=== PATIENT | male | born 1975 | race Caucasian/White ===

== ENCOUNTER 2017-04-20 12:09 | Emergency (ER) | payer OTHER ==
[2017-04-20] MEDS ORDERED: Ondansetron 4 MG/2 ML SDV IVPUSH ONE (12:13)
[2017-04-20] MEDS ORDERED: Sodium Chloride 0.9% 1,000 ML IV SCH (12:15)
--- NOTE | 2017-04-20 12:56 | EDM.PDOC ---
ED HPI GENERAL MEDICAL PROBLEM - General Chief Complaint: Chest Pain Stated Complaint: CHEST PAIN Time Seen by Provider: 04/20/17 12:12 Source of Information: Reports: Patient History Limitations: Reports: No Limitations - History of Present Illness INITIAL COMMENTS - FREE TEXT/NARRATIVE: HISTORY AND PHYSICAL: Chest Pain History of present illness: Patient is a 41-year-old male who presents to the emergency room today with complaints of midsternal chest pain that has been on and off for the past hour. States he was at work, sitting at his desk when the pain started. Describes the pain as a dull, aching pressure which intermittently goes down his right arm into his fifth finger. States the pain is a 1 out of 10 with rest and increases to a 7 out of 10 with exertion and is accompanied with nausea. Denies any shortness of breath, diaphoresis, headache, abdominal pain, vomiting or diarrhea. Denies any previous health problems and takes just multivitamins daily. Does not have any significant family history of health problems. No history of smoking. Reports his Review of systems: As per history of present illness and below otherwise all systems reviewed and negative. Past medical history: As per history of present illness and as reviewed below otherwise noncontributory. Surgical history: As per history of present illness and as reviewed below otherwise noncontributory. Social history: No reported history of drug or alcohol abuse. Family history: As per history of present illness and as reviewed below otherwise noncontributory. Physical exam: Gen.: Well-developed and well-nourished 41-year-old male. Nontoxic appearing. Able to speak in full sentences without shortness of breath. Alert and oriented. HEENT: Atraumatic, normocephalic, pupils reactive, negative for conjunctival pallor or scleral icterus, mucous membranes moist, throat clear, neck supple, nontender, trachea midline. Lungs: Clear to auscultation, breath sounds equal bilaterally, chest nontender. Heart: S1S2, regular rate and rhythm Abdomen: Soft, nondistended, nontender. Negative for masses or hepatosplenomegaly. Negative for costovertebral tenderness. Pelvis: Stable nontender. Genitourinary: Deferred. Rectal: Deferred. Extremities: Atraumatic, negative for cords or calf pain. Neurovascular unremarkable. Neuro: Awake, alert, oriented. Cranial nerves II through XII unremarkable. Cerebellum unremarkable. Motor and sensory unremarkable throughout. Exam nonfocal. Patient had 324 mg of aspirin prior to arrival and 1 nitroglycerin per EMS. Vital signs and EKG were reviewed by me and Dr. Orr. He shouldnt is currently chest pain-free and only complaint is the nausea. Patient is pain-free. Vital signs were reviewed by me. All lab and imaging results with the patient. I did offer him admission at this time. He did take 5- 10 minutes to discuss this with his family members and decided to decline admission. Risks versus benefits were reviewed, patient voices understanding. Patient states he will follow up with his primary care provider in the next 1-2 days and receive further with workup if indicated. Agreeable to plan of care and denies any further questions at this time. Diagnostics: CBC, CMP, troponin, EKG, chest x-ray, child monitor Therapeutics: IV fluid and Zofran Impression: Chest pain, nonspecific Plan: 1. Please take a baby aspirin, 81 mg once daily. 2. Follow-up with your primary care provider in the next 1-2 days. Return to the ED as needed and as discussed. Definitive disposition and diagnosis as appropriate pending reevaluation and review of above. Onset: Today Anterior Chest Pain Score (Numeric/FACES): 3 - Related Data Allergies Allergy/AdvReac Type Severity Reaction Status Date / Time bismuth subsalicylate Allergy Hives Verified 04/20/17 12:11 [From Pepto-Bismol] deet Allergy Dizziness Uncoded 04/20/17 12:11 Home Meds: Home Meds . [No Known Home Meds] 04/20/17 [History] Past Medical History - Past Health History Medical/Surgical History: Denies Medical/Surgical History Cardiovascular History: Reports: None Respiratory History: Reports: None Gastrointestinal History: Reports: None Genitourinary History: Reports: None Musculoskeletal History: Reports: None Neurological History: Reports: None Psychiatric History: Reports: None Endocrine/Metabolic History: Reports: None - Past Surgical History HEENT Surgical History: Reports: None Respiratory Surgical History: Reports: None GI Surgical History: Reports: None Musculoskeletal Surgical History: Reports: None Social & Family History - Family History Cardiac: Reports: CAD - Tobacco Use Smoking Status *Q: Never Smoker Second Hand Smoke Exposure: No - Alcohol Use Days Per Week of Alcohol Use: 0 - Recreational Drug Use Recreational Drug Use: No ED ROS GENERAL - Review of Systems Review Of Systems: ROS reveals no pertinent complaints other than HPI. ED EXAM, GENERAL - Physical Exam Exam: See Below (See dictation) Course - Vital Signs Last Recorded V/S: Last Vital Signs Temp 36.6 C 04/20/17 12:12 Pulse 69 04/20/17 12:12 Resp 15 04/20/17 12:12 BP 130/84 04/20/17 12:12 Pulse Ox 98 04/20/17 12:12 - Orders/Labs/Meds Orders: Active Orders 24 hr Category Date Time Status Cardiac Monitoring [RC] . DIRECTED Care 04/20/17 12:13 Active EKG Documentation Completion [RC] STAT Care 04/20/17 12:13 Active Sodium Chloride 0.9% [Normal Saline] 1,000 ml Med 04/20/17 12:15 Active IV ASDIRECTED Medication Orders Sodium Chloride (Normal Saline) 1,000 mls @ 999 mls/hr IV ASDIRECTED YOANDY Last Admin: 04/20/17 12:38 Dose: 999 mls/hr Labs: Laboratory Tests 04/20/17 04/20/17 Range/Units 12:37 12:37 WBC 7.27 (4.0-11.0) K/uL RBC 4.49 L (4.50-5.90) M/uL Hgb 13.7 (13.0-17.0) g/dL Hct 39.9 (38.0-50.0) % MCV 88.9 (80.0-98.0) fL MCH 30.5 (27.0-32.0) pg MCHC 34.3 (31.0-37.0) g/dL RDW Std Deviation 43.7 (28.0-62.0) fl RDW Coeff of [place] 13 (11.0-15.0) % Plt Count 251 (150-400) K/uL MPV 8.90 (7.40-12.00) fL Neut % (Auto) 61.2 (48.0-80.0) % Lymph % (Auto) 27.1 (16.0-40.0) % [place] % (Auto) 8.1 (0.0-15.0) % Eos % (Auto) 3.0 (0.0-7.0) % Baso % (Auto) 0.6 (0.0-1.5) % Neut # (Auto) 4.5 (1.4-5.7) K/uL Lymph # (Auto) 2.0 (0.6-2.4) K/uL [place] # (Auto) 0.6 (0.0-0.8) K/uL Eos # (Auto) 0.2 (0.0-0.7) K/uL Baso # (Auto) 0.0 (0.0-0.1) K/uL Nucleated RBC % 0.0 /100WBC Nucleated RBCs # 0 K/uL Sodium 140 (136-146) mmol/L Potassium 3.8 (3.5-5.1) mmol/L Chloride 107 (98-110) mmol/L Carbon Dioxide 26 (21-31) mmol/L BUN 10 (6.0-23.0) mg/dL Creatinine 1.0 (0.6-1.5) mg/dL Est Cr Clr Drug Dosing 101.39 mL/min Estimated GFR (MDRD) > 60.0 ml/min Glucose 76 (60-110) mg/dL Calcium 9.1 (8.8-10.8) mg/dL Total Bilirubin 0.3 (0.1-1.5) mg/dL AST 19 (5-40) IU/L ALT 22 (8-54) IU/L Alkaline Phosphatase 24 L (40-150) Troponin I < 0.10 (0.0-0.29) NG/ML Total Protein 7.1 (6.0-8.0) g/dL Albumin 3.9 (3.5-5.0) g/dL Globulin 3.2 (2.0-3.5) g/dL Albumin/Globulin Ratio 1.2 L (1.3-2.8) Meds: Medications Generic Name Dose Route Start Last Admin Trade Name Freq PRN Reason Stop Dose Admin Sodium Chloride 1,000 mls @ 999 mls/hr 04/20/17 12:15 04/20/17 12:38 Normal Saline IV 999 mls/hr ASDIRECTED YOANDY Administration Discontinued Medications Generic Name Dose Route Start Last Admin Trade Name Freq PRN Reason Stop Dose Admin Ondansetron HCl 4 mg 04/20/17 12:13 04/20/17 12:36 Zofran IVPUSH 10/25/17 12:14 4 mg ONETIME ONE Administration Departure - Departure Time of Disposition: 14:12 Disposition: Home, Self-Care 01 Clinical Impression: Nonspecific chest pain Referrals: PCP,Unknown [Primary Care Provider] - Forms: ED Department Discharge Additional Instructions: My general discharge The following information is given to patients seen in the emergency department who are being discharged to home. This information is to outline your options for follow-up care. We provide all patients seen in our emergency department with a follow-up referral. The need for follow-up, as well as the timing and circumstances, are variable depending upon the specifics of your emergency department visit. If you don't have a primary care physician on staff, we will provide you with a referral. We always advise you to contact your personal physician following an emergency department visit to inform them of the circumstance of the visit and for follow-up with them and/or the need for any referrals to a consulting specialist. The emergency department will also refer you to a specialist when appropriate. This referral assures that you have the opportunity for follow-up care with a specialist. All of these measure are taken in an effort to provide you with optimal care, which includes your follow-up. Under all circumstances we always encourage you to contact your private physician who remains a resource for coordinating your care. When calling for follow-up care, please make the office aware that this follow-up is from your recent emergency room visit. If for any reason you are refused follow-up, please contact the [facility] at and asked to speak to the emergency department charge nurse. [facility] [address] [place] [id number] 1. Please take a baby aspirin, 81 mg once daily. 2. Follow-up with your primary care provider in the next 1-2 days. Return to the ED as needed and as discussed. - My Orders Last 24 Hours: My Active Orders 04/20/17 12:13 Cardiac Monitoring [RC] . DIRECTED EKG Documentation Completion [RC] STAT 04/20/17 12:15 Sodium Chloride 0.9% [Normal Saline] 1,000 ml IV ASDIRECTED - Assessment/Plan Last 24 Hours: My Active Orders 04/20/17 12:13 Cardiac Monitoring [RC] . DIRECTED EKG Documentation Completion [RC] STAT 04/20/17 12:15 Sodium Chloride 0.9% [Normal Saline] 1,000 ml IV ASDIRECTED
[2017-04-20 13:24] LABS: CHLORIDE,CL 107 mmol/L (98-110); SODIUM,NA 140 mmol/L (136-146)
--- NOTE | 2017-04-20 13:25 | CR ---
EXAMINATION: Portable chest radiograph. HISTORY: Chest pain. FINDINGS: The trachea is midline. The cardiomediastinal silhouette is within normal limits. No pulmonary infilt rates, effusions or pneumothorax. Osseous structures appear unremarkable. IMPRESSION: No acute cardiopulmonary process.
[2017-04-20 14:27] VITALS: BP 131/77
== END 2017-04-20 14:21 | disposition home or self-care (01) ==
LOC: MW.ED 12:09
DX: R07.9 Chest pain, unspecified (principal)
CPT/HCPCS: 36415; 71010; 80053; 84484; 85025; 93005; 96361; 96374; 99284; J2405; J7040; 99283

== ENCOUNTER 2020-07-17 07:39 | Inpatient (IN) | payer OTHER ==
[2020-07-17] MEDS ORDERED: Dextrose 5%-0.9% NaCl 1,000 ML IV SCH (08:15)
--- NOTE | 2020-07-17 08:50 | CR ---
INDICATION: Hypoxia TECHNIQUE: Chest 1 views COMPARISON: 04/20/2017 FINDINGS: Cardiovascular and mediastinum: Heart size and vasculature are normal in caliber and appearance. Lungs and pleural spaces: Ill-defined opacities are present in the lower lungs bilaterally. No effusions and no pneumothorax. Bones and soft tissues: No significant findings. IMPRESSION: Ill-defined pneumonia, pulmonary edema, and/or atelectasis suspected in the lower lobes. COVID pneumonitis is not definite but possible. Dictated by Cesar Melchor MD @ Jul 17 2020 8:46AM Signed by Dr. Cesar Melchor @ Jul 17 2020 8:48AM
[2020-07-17 08:53] LABS: BLOOD UREA NITROGEN,BUN 21 mg/dL (7.0-18.0); CHLORIDE,CL 99 mmol/L (98-107); GLUCOSE RANDOM 93 mg/dL (74-106); SODIUM,NA 136 mmol/L (136-148)
[2020-07-17 09:19] LABS: CORONAVIRUS COVID-19 NAA POSITIVE (NEGATIVE); INFLUENZA A NAA NEGATIVE (NEGATIVE); INFLUENZA B NAA NEGATIVE (NEGATIVE)
[2020-07-17] MEDS ORDERED: Albuterol/Ipratropium 4 GM Inhalation Spray INH PRN (11:56)
[2020-07-17] MEDS ORDERED: Ondansetron 4 MG/2 ML SDV IVPUSH PRN (11:56)
[2020-07-17] MEDS ORDERED: Lactated Ringers 1,000 ML IV ONE (11:56)
[2020-07-17] MEDS ORDERED: Sodium Chloride 0.9% 2.5 ML Syringe FLUSH PRN (11:56)
[2020-07-17] MEDS ORDERED: Docusate Sodium 100 MG Cap PO PRN (11:56)
--- NOTE | 2020-07-17 12:06 | PCM.HP.2 ---
H&P History of Present Illness - General Date of Service: 07/17/20 Admit Problem/Dx: Admission Diagnosis/Problem Admission Diagnosis/Problem Hypoxia Source of Information: Patient History Limitations: Reports: No Limitations - History of Present Illness Initial Comments - Free Text/Narative: This 44-year-old male with past medical history of obesity, CHANTE, fungal lung infection, and Covid presented to the ER today with concerns of worsening shortness of breath and generalized fatigue and malaise. He reports that his generalized malaise and fatigue has worsened over the last couple weeks along with his breathing. He reports that he started noticing worsening shortness of breath a couple weeks ago and this has progressively worsened to the point today that he is unable to do many activities without severe fatigue and shortness of breath. He reports he has had fevers and chills at home along with productive cough and pleuritic chest pain. He denies any chest pain with exertion. No dizziness. He does report headache sinus congestion sore throat as well. He d enies any neck pain or nuchal rigidity. He denies any abdominal pain. He does report mild nausea and poor appetite. He denies any diarrhea or black or bloody bowel movements and no constipation. No trouble voiding. He reports that his was recently diagnosed with Covid and is into her quarantine on Tuesday. He reports that he was diagnosed with Covid in April but did not require hosp italization or an ER visit and was not treated with any medications at that time. He did see his PCP the end of May and was started on dexamethasone 6 mg twice daily for residual shortness of breath and fatigue from prior diagnosis of Covid. He also had been taking Diflucan 200 mg daily for fungal infection that was diagnosed in February in [facility]. He reports approximately 4 days ago he ran out of his Diflucan and finished taking the dexamethasone. He denies ever having any type of bronchoscopy or biopsy to diagnose this fungal infection. He reports they found groundglass opacities on his x-ray. He reports he saw a invoicing specialist, Dr. Salgado, in [place] we will attempt to get records. He reports he has not tried to take any medications to improve symptoms including Tylenol or Motrin. He is a former smoker quit tobacco in early along with alcohol use. He also denies any recreational drug use. He has no history of hypertension or diabetes and no CAD. Upon chart review, it appears he was previously had a stress test due to left-sided chest pain. Stress test revealed possible decreased uptake along the inferior wall but upon further evaluation cardiology felt this is likely not ischemia. EF 65% in 2018. In the ER leukocytosis noted at 12,000 neutrophil count slightly elevated showing a left shift. Electrolytes within normal limits BUN 21 creatinine 1.3. Troponin negative. Chest x-ray reveals ill-defined pneumonia and pulmonary edema and or atelectasis suspected in the lower lobes Covid pneumonitis is not definite but possible. Upon arrival to the ER he was noted to be hypoxic mid 80s on room air he was placed on 6 L of oxygen and slowly weaned down to 3 L nasal cannula. He has maintained sats 95% on 3 L well. Patient will be admitted inpatient due to acute hypoxic respiratory failure, Covid and possible community acquired pneumonia. PCP Dr. Cui outside chart review: Received chart from Dr. Salgado, pulmonology in [facility]. Upon review it appears patient was seen at an outside clinic and sent for consultation with pulmonology due to a lung nodule. He had a CT on February 19, 2020 that showed multiple pulmonary nodules most severe 6.7 mm solid pulmonary nodule within the upper lobe on the right the exam is negative for pulmonary embolus and there was nonspecific bilateral ground glass infiltrates noted he also had noted cough with some atypical chest pain weight loss and obstructive sleep apnea. Significant amount of tests were run including ESR CRP fungal antibodies Covid swabbing Coccidioides and quantiferon. She did recommend a PET scan but due to no insurance he did not want to perform this but all the lab studies were performed. He was started on Diflucan 200 mg twice daily empirically with high suspicion of coccidioidomycosis. He reports he continued this Diflucan twice daily but now has been taking it once a day per Dr. Salgado's recommendations. All testing revealed negative quantiferon plus was negative ESR and CRP were not significantly elevated fungal antibodies were completed which all appeared negative these included Aspergillus fumigatus flavus and [place] which were all negative Blastomyces and histoplasma were also negative Coccidioides IgE and IgM were both negative. Covid swab was also negative at this time. generalized Pain Score (Numeric/FACES): 6 - Related Data Allergies/Adverse Reactions: Allergies Allergy/AdvReac Type Severity Reaction Status Date / Time bismuth subsalicylate Allergy Hives Verified 07/17/20 07:46 [From Pepto-Bismol] deet Allergy Dizziness Uncoded 07/17/20 07:46 Home Medications: Home Meds Albuterol Sulfate [Proventil Hfa] 2 puff INH DAILY 07/17/20 [History] Budesonide/Formoterol Fumarate [Symbicort 160-4.5 Mcg Inhaler] 2 puff INH DAILY 07/17/20 [History] Fluconazole [Diflucan] 200 mg PO DAILY 07/17/20 [History] PARoxetine [Paxil] 10 mg PO DAILY 07/17/20 [History] dexAMETHasone [Dexamethasone] 6 mg PO BID 07/17/20 [History] Past Medical History - Past Health History Medical/Surgical History: Denies Medical/Surgical History Cardiovascular History: Reports: None. Denies: Afib, Blood Clots/VTE/DVT, CAD, High Cholesterol, ND Respiratory History: Reports: Sleep Apnea (Previously on CPAP was retested and needs BiPAP but awaiting insurance approval for machine.) Gastrointestinal History: Reports: None. Denies: Gastritis, GERD Genitourinary History: Reports: None. Denies: Acute Renal Failure Musculoskeletal History: Reports: None Neurological History: Reports: None. Denies: CVA, TIA Psychiatric History: Reports: None Endocrine/Metabolic History: Reports: Obesity/BMI 30+. Denies: Diabetes, Type II - Infectious Disease History Infectious Disease History: Reports: Chicken Pox - Past Surgical History HEENT Surgical History: Reports: None Respiratory Surgical History: Reports: None Other Respiratory Surgeries/Procedures: Fungal infection in lungs that is regional is [facility]. Patient states he got that in February 2020 GI Surgical History: Reports: None Musculoskeletal Surgical History: Reports: None Social & Family History - Family History Cardiac: Reports: CAD - Tobacco Use Tobacco Use Status *Q: Former Tobacco User Used Tobacco, but Quit: Yes Month/Year Tobacco Last Used: 2004 - Caffeine Use Caffeine Use: Reports: None - Alcohol Use Alcohol Use History: No - Recreational Drug Use Recreational Drug Use: No - Living Situation & Occupation Living situation: Reports: Occupation: Employed H&P Review of Systems - Review of Systems: Review Of Systems: See Below General: Reports: Fever, Chills, Malaise, Weakness, Fatigue, Decreased Appetite, Weight Loss HEENT: Reports: Headaches, Sinus Congestion, Sore Throat Pulmonary: Reports: Shortness of Breath, Pleuritic Chest Pain, Cough, Sputum (Yellow/green). Denies: Hemoptysis Cardiovascular: Reports: Dyspnea on Exertion. Denies: Chest Pain, Palpitations, Edema, Lightheadedness Gastrointestinal: Reports: Decreased Appetite, Nausea. Denies: Abdominal Pain, Black Stool, Bloody Stool, Diarrhea Genitourinary: Reports: No Symptoms. Denies: Dysuria, Frequency, Burning Musculoskeletal: Reports: No Symptoms Skin: Reports: No Symptoms Psychiatric: Reports: No Symptoms Neurological: Reports: No Symptoms Hematologic/Lymphatic: Reports: No Symptoms Immunologic: Reports: No Symptoms Exam - Exam Exam: See Below - Vital Signs Vital Signs: Last Vital Signs Temp 98.7 F 07/17/20 07:51 Pulse 87 07/17/20 07:51 Resp 16 07/17/20 07:51 BP 140/69 07/17/20 07:51 Pulse Ox 95 07/17/20 09:07 Weight: 106.594 kg - Exam Quality Assessment: Supplemental Oxygen (3 L) General: Alert, Oriented, Cooperative HEENT: Conjunctiva Clear, Pupils Equal. No: Mucosa Moist & [place] (Try) Neck: Lymphadenopathy Lungs: No: Normal Respiratory Effort (Dyspnea with speech) Cardiovascular: Regular Rate, Regular Rhythm GI/Abdominal Exam: Normal Bowel Sounds, Soft, Non-Tender Back Exam: Normal Inspection, Full Range of Motion Extremities: Normal Inspection, Normal Range of Motion, Non-Tender, No Pedal Edema Skin: Warm, Dry, Intact Neuro Extensive - Mental Status: Alert, Oriented x3, Normal Mood/Affect Neuro Extensive - Motor, Sensory, Reflexes: CN II-XII Intact Psychiatric: Alert, Normal Affect, Normal Mood - Patient Data Lab Results Last 24 hrs: Laboratory Results - last 24 hr 07/17/20 07/17/20 07/17/20 Range/Units 08:15 08:15 08:15 WBC 12.44 H (4.0-11.0) K/uL RBC 4.59 (4.50-5.90) M/uL Hgb 13.9 (13.0-17.0) g/dL Hct 42.6 (38.0-50.0) % MCV 92.8 (80.0-98.0) fL MCH 30.3 (27.0-32.0) pg MCHC 32.6 (31.0-37.0) g/dL RDW Std Deviation 48.4 (28.0-62.0) fl RDW Coeff of [place] 14 (11.0-15.0) % Plt Count 163 (150-400) K/uL MPV 8.70 (7.40-12.00) fL Neut % (Auto) 91.5 H (48.0-80.0) % Lymph % (Auto) 4.7 L (16.0-40.0) % [place] % (Auto) 3.6 (0.0-15.0) % Eos % (Auto) 0.2 (0.0-7.0) % Baso % (Auto) 0.0 (0.0-1.5) % Neut # (Auto) 11.4 H (1.4-5.7) K/uL Lymph # (Auto) 0.6 (0.6-2.4) K/uL [place] # (Auto) 0.5 (0.0-0.8) K/uL Eos # (Auto) 0.0 (0.0-0.7) K/uL Baso # (Auto) 0.0 (0.0-0.1) K/uL Nucleated RBC % 0.0 /100WBC Nucleated RBCs # 0 K/uL INR 0.99 D-Dimer, Quantitative 0.23 (0.0-0.50) mg/L FEU Sodium 136 (136-148) mmol/L Potassium 4.0 (3.5-5.1) mmol/L Chloride 99 (98-107) mmol/L Carbon Dioxide 29.0 (21.0-32.0) mmol/L BUN 21 H (7.0-18.0) mg/dL Creatinine 1.3 (0.8-1.3) mg/dL Est Cr Clr Drug Dosing 75.65 mL/min Estimated GFR (MDRD) > 60.0 ml/min Glucose 93 (74-106) mg/dL Calcium 8.9 (8.5-10.1) mg/dL Magnesium 2.3 (1.8-2.4) mg/dL Total Bilirubin 0.5 (0.2-1.0) mg/dL AST 18 (15-37) IU/L ALT 39 (14-63) IU/L Alkaline Phosphatase 17 L (46-116) U/L Creatine Kinase 29 (26-308) U/L Troponin I (0.000-0.056) ng/mL Total Protein 6.2 L (6.4-8.2) g/dL Albumin 2.6 L (3.4-5.0) g/dL Globulin 3.6 (2.6-4.0) g/dL Albumin/Globulin Ratio 0.7 L (0.9-1.6) TSH 3rd Generation 0.81 (0.36-3.74) uIU/mL Influenza Type A RNA (NEGATIVE) Influenza Type B RNA (NEGATIVE) SARS-CoV-2 RNA (MAUREEN) (NEGATIVE) 07/17/20 07/17/20 Range/Units 08:15 08:30 WBC (4.0-11.0) K/uL RBC (4.50-5.90) M/uL Hgb (13.0-17.0) g/dL Hct (38.0-50.0) % MCV (80.0-98.0) fL MCH (27.0-32.0) pg MCHC (31.0-37.0) g/dL RDW Std Deviation (28.0-62.0) fl RDW Coeff of [place] (11.0-15.0) % Plt Count (150-400) K/uL MPV (7.40-12.00) fL Neut % (Auto) (48.0-80.0) % Lymph % (Auto) (16.0-40.0) % [place] % (Auto) (0.0-15.0) % Eos % (Auto) (0.0-7.0) % Baso % (Auto) (0.0-1.5) % Neut # (Auto) (1.4-5.7) K/uL Lymph # (Auto) (0.6-2.4) K/uL [place] # (Auto) (0.0-0.8) K/uL Eos # (Auto) (0.0-0.7) K/uL Baso # (Auto) (0.0-0.1) K/uL Nucleated RBC % /100WBC Nucleated RBCs # K/uL INR D-Dimer, Quantitative (0.0-0.50) mg/L FEU Sodium (136-148) mmol/L Potassium (3.5-5.1) mmol/L Chloride (98-107) mmol/L Carbon Dioxide (21.0-32.0) mmol/L BUN (7.0-18.0) mg/dL Creatinine (0.8-1.3) mg/dL Est Cr Clr Drug Dosing mL/min Estimated GFR (MDRD) ml/min Glucose (74-106) mg/dL Calcium (8.5-10.1) mg/dL Magnesium (1.8-2.4) mg/dL Total Bilirubin (0.2-1.0) mg/dL AST (15-37) IU/L ALT (14-63) IU/L Alkaline Phosphatase (46-116) U/L Creatine Kinase (26-308) U/L Troponin I < 0.050 (0.000-0.056) ng/mL Total Protein (6.4-8.2) g/dL Albumin (3.4-5.0) g/dL Globulin (2.6-4.0) g/dL Albumin/Globulin Ratio (0.9-1.6) TSH 3rd Generation (0.36-3.74) uIU/mL Influenza Type A RNA NEGATIVE (NEGATIVE) Influenza Type B RNA NEGATIVE (NEGATIVE) SARS-CoV-2 RNA (MAUREEN) POSITIVE H (NEGATIVE) Result Diagrams: 07/17/20 08:15 07/17/20 08:15 Sepsis Event Note - Evaluation Sepsis Screening Result: No Definite Risk - Focused Exam Vital Signs: Vital Signs Temp Pulse Resp BP Pulse Ox 07/17/20 09:07 95 07/17/20 08:30 95 07/17/20 07:51 98.7 F 87 16 140/69 95 - Problem List (1) Acute respiratory failure with hypoxia SNOMED Code(s): 31046466, 344197783 ICD Code: J96.01 - ACUTE RESPIRATORY FAILURE WITH HYPOXIA Status: Acute Current Visit: Yes (2) COVID-19 SNOMED Code(s): 215263466 ICD Code: U07.1 - COVID-19 Status: Acute Current Visit: Yes (3) CAP (community acquired pneumonia) SNOMED Code(s): 097381425 ICD Code: J18.9 - PNEUMONIA, UNSPECIFIED ORGANISM Status: Acute Current Visit: Yes (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 - COCCIDIOIDOMYCOSIS, UNSPECIFIED Status: Chronic Current Visit: Yes (5) Obesity SNOMED Code(s): 107899890, 320848575 ICD Code: E66.9 - OBESITY, UNSPECIFIED Status: Chronic Current Visit: Yes (6) CHANTE on CPAP SNOMED Code(s): 72980834 ICD Code: G47.33 - OBSTRUCTIVE SLEEP APNEA (ADULT) (PEDIATRIC); Z99.89 - DEPENDENCE ON OTHER ENABLING MACHINES AND DEVICES Status: Chronic Current Visit: Yes (7) Former smoker SNOMED Code(s): 6028740 ICD Code: Z87.891 - PERSONAL HISTORY OF NICOTINE DEPENDENCE Status: Chronic Current Visit: Yes Problem List Initiated/Reviewed/Updated: No Orders Last 24hrs: Active Orders 24 hr Category Date Time Status Admission Status [Patient Status] [ADT] Stat ADT 07/17/20 11:00 Active Intake and Output [RC] QSHIFT Care 07/17/20 11:56 Ordered Oxygen Therapy [RC] PRN Care 07/17/20 11:56 Ordered Pulse Oximetry [RC] ASDIRECTED Care 07/17/20 07:59 Active RT Incentive Spirometry [RC] Q1HWA Care 07/17/20 11:56 Ordered RT Post Treatment Assessment [RC] Click to Edit Care 07/17/20 11:58 Ordered RT Pre-Treatment Assessment [RC] Click to Edit Care 07/17/20 11:58 Ordered Telemetry Monitoring [Cardiac Monitoring] [RC] . Care 07/17/20 11:59 Ordered DIRECTED Up With Assistance [RC] ASDIRECTED Care 07/17/20 11:56 Ordered VTE/DVT Education [RC] PER UNIT ROUTINE Care 07/17/20 11:56 Ordered Vital Signs [RC] Q4H Care 07/17/20 11:56 Ordered Regular Diet [DIET] Diet 07/17/20 Lunch Ordered Ang Chest [CT] Urgent Exams 07/17/20 11:18 Ordered CBC WITH AUTO DIFF [HEME] AM Lab 07/18/20 05:11 Ordered CBC WITH AUTO DIFF [HEME] AM Lab 07/19/20 05:11 Ordered CBC WITH AUTO DIFF [HEME] AM Lab 07/20/20 05:11 Ordered CBC WITH AUTO DIFF [HEME] AM Lab 07/21/20 05:11 Ordered CBC WITH AUTO DIFF [HEME] AM Lab 07/22/20 05:11 Ordered COMPREHENSIVE METABOLIC PN,CMP [CHEM] AM Lab 07/18/20 05:11 Ordered COMPREHENSIVE METABOLIC PN,CMP [CHEM] AM Lab 07/19/20 05:11 Ordered COMPREHENSIVE METABOLIC PN,CMP [CHEM] AM Lab 07/20/20 05:11 Ordered COMPREHENSIVE METABOLIC PN,CMP [CHEM] AM Lab 07/21/20 05:11 Ordered COMPREHENSIVE METABOLIC PN,CMP [CHEM] AM Lab 07/22/20 05:11 Ordered CULTURE BLOOD [BC] Stat Lab 07/17/20 11:48 Ordered CULTURE BLOOD [BC] Stat Lab 07/17/20 11:48 Ordered CULTURE SPUTUM + SMEAR [RM] Stat Lab 07/17/20 11:56 Ordered LACTATE WITH REFLEX [BG] Stat Lab 07/17/20 11:48 Ordered MAGNESIUM [CHEM] AM Lab 07/18/20 05:11 Ordered MAGNESIUM [CHEM] AM Lab 07/19/20 05:11 Ordered MAGNESIUM [CHEM] AM Lab 07/20/20 05:11 Ordered MAGNESIUM [CHEM] AM Lab 07/21/20 05:11 Ordered MAGNESIUM [CHEM] AM Lab 07/22/20 05:11 Ordered Acetaminophen [TylenoL] Med 07/17/20 11:56 Ordered 650 mg PO Q4H PRN Albuterol/Ipratropium [Combivent Respimat] Med 07/17/20 11:56 Ordered See Dose Instructions INH Q4H PRN Docusate Sodium [Colace] Med 07/17/20 11:56 Ordered 100 mg PO BID PRN Enoxaparin [Lovenox] Med 07/17/20 12:00 Ordered 40 mg SUBCUT Q24H Lactated Ringers [Ringers, Lactated] 1,000 ml Med 07/17/20 11:56 Ordered IV ONETIME Ondansetron [Zofran] Med 07/17/20 11:56 Ordered 4 mg IVPUSH Q4H PRN Sodium Chloride 0.9% [Saline Flush] Med 07/17/20 11:56 Ordered 2.5 ml FLUSH ASDIRECTED PRN Blood Culture x2 Reflex Set [OM.PC] Stat Oth 07/17/20 11:48 Ordered RT Acapella [RESPCARE] Routine Oth 07/17/20 11:56 Ordered Saline Lock Insert [OM.PC] Routine Oth 07/17/20 11:56 Ordered Resuscitation Status Routine Resus Stat 07/17/20 11:56 Ordered Medication Orders Acetaminophen (Tylenol) 650 mg PO Q4H PRN PRN Reason: Pain (Mild 1-3)/fever Albuterol/Ipratropium (Combivent Respimat) 0 gm INH Q4H PRN PRN Reason: Dyspnea Docusate Sodium (Colace) 100 mg PO BID PRN PRN Reason: Constipation Enoxaparin Sodium (Lovenox) 40 mg SUBCUT Q24H YOANDY Lactated Ringer's (Ringers, Lactated) 1,000 mls @ 125 mls/hr IV ONETIME ONE Stop: 07/17/20 19:55 Ondansetron HCl (Zofran) 4 mg IVPUSH Q4H PRN PRN Reason: Nausea Sodium Chloride (Saline Flush) 2.5 ml FLUSH ASDIRECTED PRN PRN Reason: Keep Vein Open Assessment/Plan Comment:: This 44-year-old male admitted with acute hypoxic respiratory failure, COVID-19, possible CAP 1. Acute hypoxic respiratory failure and COVID-19, viral pneumonia -CT angio revealed bilateral groundglass opacities consistent with Covid 19. No consolidation or lobar pneumonia noted pulmonary nodules previously noted and other CTs were not seen. -We will start remdesivir 200 mg IV today followed by 100 mg IV daily x4 days -Dexamethasone 6 mg p.o. daily -Lovenox 40 mg subcu daily -Combivent as needed -Tessalon Perles and Robitussin as needed cough -Lactic acid elevated 2.7 we will give LR 500 ml bolus and recheck in 4 hours. -Oxygen to keep sats greater than 92% -Encourage patient to have family bring CPAP so he is able to use this in the evenings. -Encouraged I-S and Acapella use -Encouraged prone positioning as much as possible. Patient counseled on this and verbalized understanding -Unsure if this is reinfection or prolonged Covid infection. Continue to monitor 2. Possible CAP -Levaquin 750 mg IV daily -Blood cultures pending -Pulmonary toilet as above - sputum and ua pending 3. 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 daily -We will check HIV. VTE prophylaxis: Lovenox GI prophylaxis: Protonix CODE STATUS: Full code Dispo: 2 to 3 days pending improvement - Mortality Measure Prognosis:: Good
[2020-07-17] MEDS ORDERED: Iopamidol 755 MG/ML 500 ML Multipack Bottle IVPUSH STA (12:19)
--- NOTE | 2020-07-17 12:37 | CT ---
INDICATION: Dyspnea. COVID positive COMPARISON: There are no prior chest CTs TECHNIQUE: : CT examination of the chest was performed with the uneventful intravenous administration of 100 cc of Isovue 370 while thin axial sections were obtained from above the apices of the lungs to the lung bases. Please note that all CT scans at this facility use dose modulation, iterative reconstruction, and/or weight-based dosing when appropriate to reduce radiation dose to as low as reasonably achievable. FINDINGS: : HEART and MEDIASTINUM: The heart size is normal. A few prominent mediastinal lymph nodes likely reactive. No pericardial fluid. PULMONARY ARTERIAL CIRCULATION: There is no visible intraluminal filling defect to suggest pulmonary embolus. LUNGS: Moderate to severe diffuse multifocal ground-glass opacification in a bilateral and nearly symmetric distribution. Nonspecific but compatible with COVID related lung disease. PLEURAL SPACES: There is no pleural effusion, pneumothorax or pleural based mass. VISUALIZED UPPER ABDOMEN: Hepatic steatosis. Otherwise, the limited visualized upper abdominal structures appear normal. OSSEOUS STRUCTURES: Age-appropriate appearance. No acute fracture or destructive process. TUBES and LINES: None. IMPRESSION: 1. There is no finding of pulmonary embolus. 2. Mildly prominent mediastinal lymph nodes likely reactive. 3. Moderate to severe diffuse multifocal ground-glass opacification in a bilateral and nearly symmetric distribution. Nonspecific but compatible with COVID related lung disease. Pleural spaces appear normal Please note that all CT scans at this facility use dose modulation, iterative reconstruction, and/or weight-based dosing when appropriate to reduce radiation dose to as low as reasonably achievable. Dictated by Aj Celestin MD @ Jul 17 2020 12:28PM Signed by Dr. Aj Celestin @ Jul 17 2020 12:35PM
[2020-07-17] MEDS: Enoxaparin 40 MG/0.4 ML Syringe SUBCUT SCH (12:55)
[2020-07-17] MEDS ORDERED: REMDESIVIR 200 MG in Sodium Chloride 0.9% 250 ML IV ONE (13:30)
[2020-07-17] MEDS ORDERED: Codeine/guaiFENesin 10-100 MG/5 ML Syrup 5 ML Cup PO PRN (13:53)
[2020-07-17] MEDS ORDERED: Benzonatate 100 MG Cap PO PRN (13:53)
[2020-07-17] MEDS ORDERED: Levofloxacin/Dextrose 5%-Water 750 MG in Premix Bag 1 BAG IV SCH (14:00)
[2020-07-17] MEDS: Dexamethasone 4 MG Tab PO SCH (14:26)
[2020-07-17] MEDS: Levofloxacin/Dextrose 5%-Water 750 MG in Premix Bag 1 BAG IV SCH (16:11)
[2020-07-17] MEDS: Fluconazole 100 MG Tab PO SCH ×2 (16:11→19:56)
--- NOTE | 2020-07-17 16:49 | EDM.PDOC ---
ED HPI GENERAL MEDICAL PROBLEM - General Chief Complaint: Respiratory Problem Stated Complaint: SHORTNESS OF BREATH Time Seen by Provider: 07/17/20 07:50 Source of Information: Reports: Patient History Limitations: Reports: No Limitations - History of Present Illness INITIAL COMMENTS - FREE TEXT/NARRATIVE: CHIEF COMPLAINT(S): Weakness HISTORY OF PRESENT ILLNESS: This is a 43-year-old man with a past medical history of regional specific fungal lung infection and prior Covid who comes to the emergency department with a chief complaint of weakness. The patient states that since he has lost approximately 15 pounds and has not been eating a lot and is feeling weak. He states that today he started to feel short of breath and decided to come to the emergency department. He states that he almost lost his job over and the stress may be causing him to eat less but denies any other symptoms such as night sweats or any other symptoms. He denies any fever, chills, chest pain, abdominal pain, nausea or vomiting. He states that he was diagnosed with this fungal infection and is on antifungals but he does not know the name of the actual fungus that is in his lungs. He states that he obtained this while living in [place] in [place]. REVIEW OF SYSTEMS: Constitutional: Positive for weakness. Denies fever, chills. Eyes: Denies eye pain Ears, Nose, Mouth, & Throat: Denies earache Cardiovascular: Denies chest pain Respiratory: Positive for shortness of breath Gastrointestinal: Denies Nausea, vomiting, diarrhea, hematochezia. Genitourinary: Denies hematuria Skin:Denies a rash Neurological: Denies blurred vision, numbness, tingling, weakness Psychiatric: Denies depression PAST MEDICAL HISTORY: As per history of present illness and as reviewed below otherwise noncontributory. SURGICAL HISTORY: As per history of present illness and as reviewed below otherwise noncontributory. SOCIAL HISTORY: As per history of present illness and as reviewed below otherwise noncontributory. FAMILY HISTORY: As per history of present illness and as reviewed below otherwise noncontributory. EXAMINATION OF ORGAN SYSTEMS/BODY AREAS: Constitutional: Blood pressure was 140/69, heart rate 87, respiratory rate 16 with an oxygen saturation of 80% on room air. Patient's oxygenation improved to 95% on 6 L nasal cannula. Temperature 37.1 General: Young man who does not appear to be in acute distress Psychiatric: Appropriate mood and affect. Eyes: No scleral icterus or conjunctival erythema ENMT: Moist mucous membranes. No pharyngeal erythema Cardiovascular: Regular, rate, and rhythm. No gallops, murmurs, or rubs. Bilateral upper extremity pulses symmetric and intact. No peripheral edema. No JVD. Respiratory: Lungs clear to auscultation bilaterally. No wheezes, rales, or rhonchi. No increased work of breathing. Patient is speaking in full sentences. Gastrointestinal: Soft, non-tender, non-distended. Normoactive bowel sounds Genitourinary: No suprapubic tenderness Musculoskeletal: Normal range of motion. Skin: No lesions or abrasions. Neurological: Alert, GCS 15 MEDICAL DECISION MAKING AND COURSE IN THE ED WITH INTERPRETATION/REVIEW OF DIAGNOSTIC STUDIES: This is a 44-year-old man with a past medical history of unknown fungal lung infection and prior history of Covid who comes to the emergency department with weakness and shortness of breath who is hypoxic on room air. Patient does not appear to be in acute distress however given his fungal infection and hypoxia we will obtain a work-up. We will obtain a CBC, D- dimer, coags, CMP, troponin, CPK, and TSH. We will obtain a Covid and influenza swab. At this time differential includes pneumonia, exacerbation of his fungal pneumonia, Covid. We will place the patient on cardiac monitoring and pulse oximetry. Laboratory: CBC reveals a mild leukocytosis of 12.44 otherwise unremarkable. Coags are within normal limits. D-dimer is normal at 0.23. CMP reveals hypoalbuminemia at 2.6 otherwise unremarkable. Troponin is negative. CPK is normal. TSH is normal. Covid is positive. Influenza is negative. Chest x-ray reveals ill-defined pneumonia, pulmonary edema, and or atelectasis suspected in the lower lobes. Covid pneumonitis is not definitive but possible. After labs and imaging I did discuss the results with the patient. I discussed that given his prior lung infection and the degree of his hypoxia on presentation I would like to admit him to the hospital. He was amenable to this plan. I contacted Dr. Torres who accepted the admission. DISPOSITION: Patient was admitted to the hospital in stable condition CONDITION: Serious PROCEDURES: None FINAL IMPRESSION(S)/DIAGNOSES: 1. Acute hypoxic respiratory failure secondary to coronavirus Jeison Nava M.D. generalized Pain Score (Numeric/FACES): 6 - Related Data Allergies Allergy/AdvReac Type Severity Reaction Status Date / Time bismuth subsalicylate Allergy Hives Verified 07/17/20 14:59 [From Pepto-Bismol] deet Allergy Dizziness Uncoded 07/17/20 14:59 Home Meds: Home Meds Albuterol Sulfate [Proventil Hfa] 2 puff INH DAILY 07/17/20 [History] Budesonide/Formoterol Fumarate [Symbicort 160-4.5 Mcg Inhaler] 2 puff INH DAILY 07/17/20 [History] Fluconazole [Diflucan] 200 mg PO DAILY 07/17/20 [History] PARoxetine [Paxil] 10 mg PO DAILY 07/17/20 [History] dexAMETHasone [Dexamethasone] 6 mg PO BID 07/17/20 [History] Past Medical History - Past Health History Medical/Surgical History: Denies Medical/Surgical History Cardiovascular History: Reports: None Respiratory History: Reports: Sleep Apnea Gastrointestinal History: Reports: None Genitourinary History: Reports: None Musculoskeletal History: Reports: None Neurological History: Reports: None Psychiatric History: Reports: None Endocrine/Metabolic History: Reports: Obesity/BMI 30+ - Infectious Disease History Infectious Disease History: Reports: Chicken Pox - Past Surgical History HEENT Surgical History: Reports: None Respiratory Surgical History: Reports: None Other Respiratory Surgeries/Procedures: Fungal infection in lungs that is regional is [facility]. Patient states he got that in February 2020 GI Surgical History: Reports: None Musculoskeletal Surgical History: Reports: None Social & Family History - Family History Cardiac: Reports: CAD - Tobacco Use Tobacco Use Status *Q: Former Tobacco User Used Tobacco, but Quit: Yes Month/Year Tobacco Last Used: 2004 - Caffeine Use Caffeine Use: Reports: None - Recreational Drug Use Recreational Drug Use: No - Living Situation & Occupation Living situation: Reports: Occupation: Employed ED ROS GENERAL - Review of Systems Review Of Systems: See Below ED EXAM, GENERAL - Physical Exam Exam: See Below GI/Abdominal: Normal Bowel Sounds, Soft, Non-Tender Back Exam: Normal Inspection, Full Range of Motion Extremities: Normal Inspection, Normal Range of Motion, Non-Tender, No Pedal E emilie Course - Vital Signs Last Recorded V/S: Last Vital Signs Temp 36.3 C 07/17/20 12:58 Pulse 80 07/17/20 12:58 Resp 17 07/17/20 12:58 BP 119/68 07/17/20 12:58 Pulse Ox 96 07/17/20 12:58 - Orders/Labs/Meds Orders: Active Orders 24 hr Category Date Time Status Pulse Oximetry [RC] ASDIRECTED Care 07/17/20 07:59 Active Medication Orders Acetaminophen (Tylenol) 650 mg PO Q4H PRN PRN Reason: Pain (Mild 1-3)/fever Albuterol/Ipratropium (Combivent Respimat) 0 gm INH Q4HRRT PRN PRN Reason: Dyspnea Benzonatate (Tessalon Perles) 100 mg PO TID PRN PRN Reason: Cough Dexamethasone (Dexamethasone) 6 mg PO DAILY [facility] Last Admin: 07/17/20 14:26 Dose: 6 mg Documented by: OSCAR Docusate Sodium (Colace) 100 mg PO BID PRN PRN Reason: Constipation Enoxaparin Sodium (Lovenox) 40 mg SUBCUT Q24H [facility] Last Admin: 07/17/20 12:55 Dose: 40 mg Documented by: OSCAR Fluconazole (Diflucan) 200 mg PO Q24H [facility] Last Admin: 07/17/20 16:11 Dose: Not Given Documented by: OSCAR Guaifenesin/Codeine Phosphate (Robitussin Ac) 10 ml PO Q4H PRN PRN Reason: Cough Lactated Ringer's (Ringers, Lactated) 1,000 mls @ 125 mls/hr IV ONETIME ONE Stop: 07/17/20 19:55 Last Admin: 07/17/20 12:55 Dose: 125 mls/hr Documented by: OSCAR Remdesivir 100 mg/ Sodium (Chloride) 100 mls @ 100 mls/hr IV Q24H [facility] Stop: 07/21/20 14:29 Levofloxacin/Dextrose 750 mg/ (Premix) 150 mls @ 100 mls/hr IV Q24H [facility] Last Admin: 07/17/20 16:11 Dose: 100 mls/hr Documented by: OSCAR Ondansetron HCl (Zofran) 4 mg IVPUSH Q4H PRN PRN Reason: Nausea Sodium Chloride (Saline Flush) 2.5 ml FLUSH ASDIRECTED PRN PRN Reason: Keep Vein Open Labs: Laboratory Tests 07/17/20 07/17/20 07/17/20 Range/Units 08:15 08:15 08:15 WBC 12.44 H (4.0-11.0) K/uL RBC 4.59 (4.50-5.90) M/uL Hgb 13.9 (13.0-17.0) g/dL Hct 42.6 (38.0-50.0) % MCV 92.8 (80.0-98.0) fL MCH 30.3 (27.0-32.0) pg MCHC 32.6 (31.0-37.0) g/dL RDW Std Deviation 48.4 (28.0-62.0) fl RDW Coeff of [place]ma[place] 14 (11.0-15.0) % Plt Count 163 (150-400) K/uL MPV 8.70 (7.40-12.00) fL Neut % (Auto) 91.5 H (48.0-80.0) % Lymph % (Auto) 4.7 L (16.0-40.0) % [place] % (Auto) 3.6 (0.0-15.0) % Eos % (Auto) 0.2 (0.0-7.0) % Baso % (Auto) 0.0 (0.0-1.5) % Neut # (Auto) 11.4 H (1.4-5.7) K/uL Lymph # (Auto) 0.6 (0.6-2.4) K/uL [place] # (Auto) 0.5 (0.0-0.8) K/uL Eos # (Auto) 0.0 (0.0-0.7) K/uL Baso # (Auto) 0.0 (0.0-0.1) K/uL Nucleated RBC % 0.0 /100WBC Nucleated RBCs # 0 K/uL INR 0.99 D-Dimer, Quantitative 0.23 (0.0-0.50) mg/L FEU Sodium 136 (136-148) mmol/L Potassium 4.0 (3.5-5.1) mmol/L Chloride 99 (98-107) mmol/L Carbon Dioxide 29.0 (21.0-32.0) mmol/L BUN 21 H (7.0-18.0) mg/dL Creatinine 1.3 (0.8-1.3) mg/dL Est Cr Clr Drug Dosing 75.65 mL/min Estimated GFR (MDRD) > 60.0 ml/min Glucose 93 (74-106) mg/dL Calcium 8.9 (8.5-10.1) mg/dL Magnesium 2.3 (1.8-2.4) mg/dL Total Bilirubin 0.5 (0.2-1.0) mg/dL AST 18 (15-37) IU/L ALT 39 (14-63) IU/L Alkaline Phosphatase 17 L (46-116) U/L Creatine Kinase 29 (26-308) U/L Troponin I (0.000-0.056) ng/mL Total Protein 6.2 L (6.4-8.2) g/dL Albumin 2.6 L (3.4-5.0) g/dL Globulin 3.6 (2.6-4.0) g/dL Albumin/Globulin Ratio 0.7 L (0.9-1.6) TSH 3rd Generation 0.81 (0.36-3.74) uIU/mL HIV 1&2 Ag/Ab, 4th Gen (<1.0) INDEX Influenza Type A RNA (NEGATIVE) Influenza Type B RNA (NEGATIVE) SARS-CoV-2 RNA (MAUREEN) (NEGATIVE) 07/17/20 07/17/20 07/17/20 Range/Units 08:15 08:15 08:30 WBC (4.0-11.0) K/uL RBC (4.50-5.90) M/uL Hgb (13.0-17.0) g/dL Hct (38.0-50.0) % MCV (80.0-98.0) fL MCH (27.0-32.0) pg MCHC (31.0-37.0) g/dL RDW Std Deviation (28.0-62.0) fl RDW Coeff of [place] (11.0-15.0) % Plt Count (150-400) K/uL MPV (7.40-12.00) fL Neut % (Auto) (48.0-80.0) % Lymph % (Auto) (16.0-40.0) % [place] % (Auto) (0.0-15.0) % Eos % (Auto) (0.0-7.0) % Baso % (Auto) (0.0-1.5) % Neut # (Auto) (1.4-5.7) K/uL Lymph # (Auto) (0.6-2.4) K/uL [place] # (Auto) (0.0-0.8) K/uL Eos # (Auto) (0.0-0.7) K/uL Baso # (Auto) (0.0-0.1) K/uL Nucleated RBC % /100WBC Nucleated RBCs # K/uL INR D-Dimer, Quantitative (0.0-0.50) mg/L FEU Sodium (136-148) mmol/L Potassium (3.5-5.1) mmol/L Chloride (98-107) mmol/L Carbon Dioxide (21.0-32.0) mmol/L BUN (7.0-18.0) mg/dL Creatinine (0.8-1.3) mg/dL Est Cr Clr Drug Dosing mL/min Estimated GFR (MDRD) ml/min Glucose (74-106) mg/dL Calcium (8.5-10.1) mg/dL Magnesium (1.8-2.4) mg/dL Total Bilirubin (0.2-1.0) mg/dL AST (15-37) IU/L ALT (14-63) IU/L Alkaline Phosphatase (46-116) U/L Creatine Kinase (26-308) U/L Troponin I < 0.050 (0.000-0.056) ng/mL Total Protein (6.4-8.2) g/dL Albumin (3.4-5.0) g/dL Globulin (2.6-4.0) g/dL Albumin/Globulin Ratio (0.9-1.6) TSH 3rd Generation (0.36-3.74) uIU/mL HIV 1&2 Ag/Ab, 4th Gen 0.2 (<1.0) INDEX Influenza Type A RNA NEGATIVE (NEGATIVE) Influenza Type B RNA NEGATIVE (NEGATIVE) SARS-CoV-2 RNA (MAUREEN) POSITIVE H (NEGATIVE) Meds: Medications Generic Name Dose Route Start Last Admin Trade Name Freq PRN Reason Stop Dose Admin Acetaminophen 650 mg 07/17/20 11:56 Tylenol PO Q4H PRN Pain (Mild 1-3)/fever Albuterol/Ipratropium 0 gm 07/17/20 11:56 Combivent Respimat INH Q4HRRT PRN Dyspnea Benzonatate 100 mg 07/17/20 13:53 Tessalon Perles PO TID PRN Cough Dexamethasone 6 mg 07/17/20 14:00 07/17/20 14:26 Dexamethasone PO 6 mg DAILY YOANDY Administration Docusate Sodium 100 mg 07/17/20 11:56 Colace PO BID PRN Constipation Enoxaparin Sodium 40 mg 07/17/20 12:00 07/17/20 12:55 Lovenox SUBCUT 40 mg Q24H YOANDY Administration Fluconazole 200 mg 07/17/20 15:00 07/17/20 16:11 Diflucan PO Not Given Q24H YOANDY Guaifenesin/Codeine Phosphate 10 ml 07/17/20 13:53 Robitussin Ac PO Q4H PRN Cough Lactated Ringer's 1,000 mls @ 125 mls/hr 07/17/20 11:56 07/17/20 12:55 Ringers, Lactated IV 07/17/20 19:55 125 mls/hr ONETIME ONE Administration Remdesivir 100 mg/ Sodium 100 mls @ 100 mls/hr 07/18/20 13:30 Chloride IV 07/21/20 14:29 Q24H YOANDY Levofloxacin/Dextrose 750 mg/ 150 mls @ 100 mls/hr 07/17/20 15:30 07/17/20 16:11 Premix IV 100 mls/hr Q24H YOANDY Administration Ondansetron HCl 4 mg 07/17/20 11:56 Zofran IVPUSH Q4H PRN Nausea Sodium Chloride 2.5 ml 07/17/20 11:56 Saline Flush FLUSH ASDIRECTED PRN Keep Vein Open Discontinued Medications Generic Name Dose Route Start Last Admin Trade Name Freq PRN Reason Stop Dose Admin Dextrose/Sodium Chloride 1,000 mls @ 999 mls/hr 07/17/20 08:15 07/17/20 08:15 Dextrose 5%-Normal Saline IV 999 mls/hr ASDIRECTED YOANDY Administration Remdesivir 200 mg/ Sodium 250 mls @ 250 mls/hr 07/17/20 13:30 07/17/20 14:28 Chloride IV 07/17/20 14:29 250 mls/hr ONETIME ONE Administration Iopamidol 100 ml 07/17/20 12:19 07/17/20 12:20 Isovue Multipack-370 (76%) IVPUSH 07/17/20 12:20 100 ml ONETIME STA Administration Departure - Departure Time of Disposition: 11:00 Disposition: Admitted As Inpatient 67 Condition: Serious Clinical Impression: Hypoxemia, COVID-19 - Discharge Information Sepsis Event Note (ED) - Evaluation Sepsis Screening Result: No Definite Risk - Focused Exam Vital Signs: Vital Signs Temp Pulse Resp BP Pulse Ox 07/17/20 09:07 95 07/17/20 08:30 95 07/17/20 07:51 37.1 C 87 16 140/69 95 - My Orders Last 24 Hours: My Active Orders 07/17/20 07:59 Pulse Oximetry [RC] ASDIRECTED - Assessment/Plan Last 24 Hours: My Active Orders 07/17/20 07:59 Pulse Oximetry [RC] ASDIRECTED
[2020-07-17] MEDS: Acetaminophen 325 MG Tab PO PRN (19:54)
[2020-07-18 06:47] LABS: BLOOD UREA NITROGEN,BUN 18 mg/dL (7.0-18.0); CHLORIDE,CL 101 mmol/L (98-107); GLUCOSE RANDOM 114 mg/dL (74-106); POTASSIUM,K 4.5 mmol/L (3.5-5.1); SODIUM,NA 138 mmol/L (136-148)
--- NOTE | 2020-07-18 08:03 | PCM.PN ---
- General Info Date of Service: 07/18/20 Admission Dx/Problem (Free Text): Admission Diagnosis/Problem Admission Diagnosis/Problem acute hypoxic respiratory failure, COVID-19, CAP Subjective Update: Feeling much improved today. He is currently off oxygen satting 94% on room air. Does continue to report shortness of breath especially with exertion. Reports intermittent cough that is productive. Denies any chest pain but does report some pleuritic burning with coughing and shortness of breath. Denies any abdominal pain no diarrhea or constipation he is eating and drinking well. He is up ambulating in his room per self Functional Status: Reports: Pain Controlled, Tolerating Diet, Ambulating, Urinating - Review of Systems General: Reports: Weakness, Fatigue HEENT: Reports: Headaches (Much improved from yesterday). Denies: Sore Throat, Visual Changes Pulmonary: Reports: Shortness of Breath, Pleuritic Chest Pain, Cough, Sputum. Denies: Hemoptysis, Wheezing Cardiovascular: Reports: Dyspnea on Exertion. Denies: Chest Pain Gastrointestinal: Reports: No Symptoms. Denies: Abdominal Pain, Nausea, Vomiting Genitourinary: Reports: No Symptoms. Denies: Dysuria, Frequency, Burning Musculoskeletal: Reports: No Symptoms Skin: Reports: No Symptoms Neurological: Reports: No Symptoms Psychiatric: Reports: No Symptoms - Patient Data Vitals - Most Recent: Last Vital Signs Temp 97.4 F 07/18/20 03:39 Pulse 55 L 07/18/20 03:39 Resp 16 07/18/20 03:39 BP 122/64 07/18/20 03:39 Pulse Ox 95 07/18/20 03:44 Weight - Most Recent: 106.594 kg I&O - Last 24 Hours: Intake & Output 07/17/20 07/18/20 07/18/20 22:59 06:59 14:59 Intake Total 560 440 Output Total 1000 2000 Balance -440 -1560 Lab Results Last 24 Hours: Laboratory Results - last 24 hr 07/17/20 07/17/20 07/17/20 Range/Units 08:15 08:15 08:15 WBC 12.44 H (4.0-11.0) K/uL RBC 4.59 (4.50-5.90) M/uL Hgb 13.9 (13.0-17.0) g/dL Hct 42.6 (38.0-50.0) % MCV 92.8 (80.0-98.0) fL MCH 30.3 (27.0-32.0) pg MCHC 32.6 (31.0-37.0) g/dL RDW Std Deviation 48.4 (28.0-62.0) fl RDW Coeff of [place] 14 (11.0-15.0) % Plt Count 163 (150-400) K/uL MPV 8.70 (7.40-12.00) fL Neut % (Auto) 91.5 H (48.0-80.0) % Lymph % (Auto) 4.7 L (16.0-40.0) % [place] % (Auto) 3.6 (0.0-15.0) % Eos % (Auto) 0.2 (0.0-7.0) % Baso % (Auto) 0.0 (0.0-1.5) % Neut # (Auto) 11.4 H (1.4-5.7) K/uL Lymph # (Auto) 0.6 (0.6-2.4) K/uL [place] # (Auto) 0.5 (0.0-0.8) K/uL Eos # (Auto) 0.0 (0.0-0.7) K/uL Baso # (Auto) 0.0 (0.0-0.1) K/uL Nucleated RBC % 0.0 /100WBC Nucleated RBCs # 0 K/uL INR 0.99 D-Dimer, Quantitative 0.23 (0.0-0.50) mg/L FEU Lactate (0.20-2.00) mmol/L Sodium 136 (136-148) mmol/L Potassium 4.0 (3.5-5.1) mmol/L Chloride 99 (98-107) mmol/L Carbon Dioxide 29.0 (21.0-32.0) mmol/L BUN 21 H (7.0-18.0) mg/dL Creatinine 1.3 (0.8-1.3) mg/dL Est Cr Clr Drug Dosing 75.65 mL/min Estimated GFR (MDRD) > 60.0 ml/min Glucose 93 (74-106) mg/dL Calcium 8.9 (8.5-10.1) mg/dL Magnesium 2.3 (1.8-2.4) mg/dL Total Bilirubin 0.5 (0.2-1.0) mg/dL AST 18 (15-37) IU/L ALT 39 (14-63) IU/L Alkaline Phosphatase 17 L (46-116) U/L Creatine Kinase 29 (26-308) U/L Troponin I (0.000-0.056) ng/mL Total Protein 6.2 L (6.4-8.2) g/dL Albumin 2.6 L (3.4-5.0) g/dL Globulin 3.6 (2.6-4.0) g/dL Albumin/Globulin Ratio 0.7 L (0.9-1.6) TSH 3rd Generation 0.81 (0.36-3.74) uIU/mL Urine Color Urine Appearance Urine pH (5.0-8.0) Ur Specific [place] (1.001-1.035) Urine Protein (NEGATIVE) mg/dL Urine Glucose (UA) (NEGATIVE) mg/dL Urine Ketones (NEGATIVE) mg/dL Urine Occult Blood (NEGATIVE) Urine Nitrite (NEGATIVE) Urine Bilirubin (NEGATIVE) Urine Urobilinogen (<2.0) EU/dL Ur Leukocyte Esterase (NEGATIVE) HIV 1&2 Ag/Ab, 4th Gen (<1.0) INDEX Influenza Type A RNA (NEGATIVE) Influenza Type B RNA (NEGATIVE) SARS-CoV-2 RNA (MAUREEN) (NEGATIVE) 07/17/20 07/17/20 07/17/20 Range/Units 08:15 08:15 08:30 WBC (4.0-11.0) K/uL RBC (4.50-5.90) M/uL Hgb (13.0-17.0) g/dL Hct (38.0-50.0) % MCV (80.0-98.0) fL MCH (27.0-32.0) pg MCHC (31.0-37.0) g/dL RDW Std Deviation (28.0-62.0) fl RDW Coeff of [place] (11.0-15.0) % Plt Count (150-400) K/uL MPV (7.40-12.00) fL Neut % (Auto) (48.0-80.0) % Lymph % (Auto) (16.0-40.0) % [place] % (Auto) (0.0-15.0) % Eos % (Auto) (0.0-7.0) % Baso % (Auto) (0.0-1.5) % Neut # (Auto) (1.4-5.7) K/uL Lymph # (Auto) (0.6-2.4) K/uL [place] # (Auto) (0.0-0.8) K/uL Eos # (Auto) (0.0-0.7) K/uL Baso # (Auto) (0.0-0.1) K/uL Nucleated RBC % /100WBC Nucleated RBCs # K/uL INR D-Dimer, Quantitative (0.0-0.50) mg/L FEU Lactate (0.20-2.00) mmol/L Sodium (136-148) mmol/L Potassium (3.5-5.1) mmol/L Chloride (98-107) mmol/L Carbon Dioxide (21.0-32.0) mmol/L BUN (7.0-18.0) mg/dL Creatinine (0.8-1.3) mg/dL Est Cr Clr Drug Dosing mL/min Estimated GFR (MDRD) ml/min Glucose (74-106) mg/dL Calcium (8.5-10.1) mg/dL Magnesium (1.8-2.4) mg/dL Total Bilirubin (0.2-1.0) mg/dL AST (15-37) IU/L ALT (14-63) IU/L Alkaline Phosphatase (46-116) U/L Creatine Kinase (26-308) U/L Troponin I < 0.050 (0.000-0.056) ng/mL Total Protein (6.4-8.2) g/dL Albumin (3.4-5.0) g/dL Globulin (2.6-4.0) g/dL Albumin/Globulin Ratio (0.9-1.6) TSH 3rd Generation (0.36-3.74) uIU/mL Urine Color Urine Appearance Urine pH (5.0-8.0) Ur Specific [place] (1.001-1.035) Urine Protein (NEGATIVE) mg/dL Urine Glucose (UA) (NEGATIVE) mg/dL Urine Ketones (NEGATIVE) mg/dL Urine Occult Blood (NEGATIVE) Urine Nitrite (NEGATIVE) Urine Bilirubin (NEGATIVE) Urine Urobilinogen (<2.0) EU/dL Ur Leukocyte Esterase (NEGATIVE) HIV 1&2 Ag/Ab, 4th Gen 0.2 (<1.0) INDEX Influenza Type A RNA NEGATIVE (NEGATIVE) Influenza Type B RNA NEGATIVE (NEGATIVE) SARS-CoV-2 RNA (MAUREEN) POSITIVE H (NEGATIVE) 07/17/20 07/17/20 07/17/20 Range/Units 13:34 16:19 18:00 WBC (4.0-11.0) K/uL RBC (4.50-5.90) M/uL Hgb (13.0-17.0) g/dL Hct (38.0-50.0) % MCV (80.0-98.0) fL MCH (27.0-32.0) pg MCHC (31.0-37.0) g/dL RDW Std Deviation (28.0-62.0) fl RDW Coeff of [place] (11.0-15.0) % Plt Count (150-400) K/uL MPV (7.40-12.00) fL Neut % (Auto) (48.0-80.0) % Lymph % (Auto) (16.0-40.0) % [place] % (Auto) (0.0-15.0) % Eos % (Auto) (0.0-7.0) % Baso % (Auto) (0.0-1.5) % Neut # (Auto) (1.4-5.7) K/uL Lymph # (Auto) (0.6-2.4) K/uL [place] # (Auto) (0.0-0.8) K/uL Eos # (Auto) (0.0-0.7) K/uL Baso # (Auto) (0.0-0.1) K/uL Nucleated RBC % /100WBC Nucleated RBCs # K/uL INR D-Dimer, Quantitative (0.0-0.50) mg/L FEU Lactate 2.7 H* 1.1 (0.20-2.00) mmol/L Sodium (136-148) mmol/L Potassium (3.5-5.1) mmol/L Chloride (98-107) mmol/L Carbon Dioxide (21.0-32.0) mmol/L BUN (7.0-18.0) mg/dL Creatinine (0.8-1.3) mg/dL Est Cr Clr Drug Dosing mL/min Estimated GFR (MDRD) ml/min Glucose (74-106) mg/dL Calcium (8.5-10.1) mg/dL Magnesium (1.8-2.4) mg/dL Total Bilirubin (0.2-1.0) mg/dL AST (15-37) IU/L ALT (14-63) IU/L Alkaline Phosphatase (46-116) U/L Creatine Kinase (26-308) U/L Troponin I (0.000-0.056) ng/mL Total Protein (6.4-8.2) g/dL Albumin (3.4-5.0) g/dL Globulin (2.6-4.0) g/dL Albumin/Globulin Ratio (0.9-1.6) TSH 3rd Generation (0.36-3.74) uIU/mL Urine Color YELLOW Urine Appearance CLEAR Urine pH 7.0 (5.0-8.0) Ur Specific [place] 1.010 (1.001-1.035) Urine Protein NEGATIVE (NEGATIVE) mg/dL Urine Glucose (UA) NEGATIVE (NEGATIVE) mg/dL Urine Ketones NEGATIVE (NEGATIVE) mg/dL Urine Occult Blood NEGATIVE (NEGATIVE) Urine Nitrite NEGATIVE (NEGATIVE) Urine Bilirubin NEGATIVE (NEGATIVE) Urine Urobilinogen 0.2 (<2.0) EU/dL Ur Leukocyte Esterase NEGATIVE (NEGATIVE) HIV 1&2 Ag/Ab, 4th Gen (<1.0) INDEX Influenza Type A RNA (NEGATIVE) Influenza Type B RNA (NEGATIVE) SARS-CoV-2 RNA (MAUREEN) (NEGATIVE) 07/18/20 07/18/20 Range/Units 06:05 06:05 WBC 7.62 (4.0-11.0) K/uL RBC 4.88 (4.50-5.90) M/uL Hgb 14.9 (13.0-17.0) g/dL Hct 45.7 (38.0-50.0) % MCV 93.6 (80.0-98.0) fL MCH 30.5 (27.0-32.0) pg MCHC 32.6 (31.0-37.0) g/dL RDW Std Deviation 48.6 (28.0-62.0) fl RDW Coeff of [place] 14 (11.0-15.0) % Plt Count 162 (150-400) K/uL MPV 8.80 (7.40-12.00) fL Neut % (Auto) 91.3 H (48.0-80.0) % Lymph % (Auto) 5.0 L (16.0-40.0) % [place] % (Auto) 3.7 (0.0-15.0) % Eos % (Auto) 0.0 (0.0-7.0) % Baso % (Auto) 0.0 (0.0-1.5) % Neut # (Auto) 7.0 H (1.4-5.7) K/uL Lymph # (Auto) 0.4 L (0.6-2.4) K/uL [place] # (Auto) 0.3 (0.0-0.8) K/uL Eos # (Auto) 0.0 (0.0-0.7) K/uL Baso # (Auto) 0.0 (0.0-0.1) K/uL Nucleated RBC % 0.0 /100WBC Nucleated RBCs # 0 K/uL INR D-Dimer, Quantitative (0.0-0.50) mg/L FEU Lactate (0.20-2.00) mmol/L Sodium 138 (136-148) mmol/L Potassium 4.5 (3.5-5.1) mmol/L Chloride 101 (98-107) mmol/L Carbon Dioxide 28.0 (21.0-32.0) mmol/L BUN 18 (7.0-18.0) mg/dL Creatinine 1.0 (0.8-1.3) mg/dL Est Cr Clr Drug Dosing 98.35 mL/min Estimated GFR (MDRD) > 60.0 ml/min Glucose 114 H (74-106) mg/dL Calcium 8.9 (8.5-10.1) mg/dL Magnesium 2.6 H (1.8-2.4) mg/dL Total Bilirubin 0.3 (0.2-1.0) mg/dL AST 24 (15-37) IU/L ALT 46 (14-63) IU/L Alkaline Phosphatase 15 L (46-116) U/L Creatine Kinase (26-308) U/L Troponin I (0.000-0.056) ng/mL Total Protein 6.6 (6.4-8.2) g/dL Albumin 2.4 L (3.4-5.0) g/dL Globulin 4.2 H (2.6-4.0) g/dL Albumin/Globulin Ratio 0.6 L (0.9-1.6) TSH 3rd Generation (0.36-3.74) uIU/mL Urine Color Urine Appearance Urine pH (5.0-8.0) Ur Specific [place] (1.001-1.035) Urine Protein (NEGATIVE) mg/dL Urine Glucose (UA) (NEGATIVE) mg/dL Urine Ketones (NEGATIVE) mg/dL Urine Occult Blood (NEGATIVE) Urine Nitrite (NEGATIVE) Urine Bilirubin (NEGATIVE) Urine Urobilinogen (<2.0) EU/dL Ur Leukocyte Esterase (NEGATIVE) HIV 1&2 Ag/Ab, 4th Gen (<1.0) INDEX Influenza Type A RNA (NEGATIVE) Influenza Type B RNA (NEGATIVE) SARS-CoV-2 RNA (MAUREEN) (NEGATIVE) [place] Results Last 24 Hours: Microbiology 07/17/20 16:19 Gram Stain - Final Sputum - Expectorated Med Orders - Current: Current Medications Acetaminophen (Tylenol) 650 mg PO Q4H PRN PRN Reason: Pain (Mild 1-3)/fever Last Admin: 07/17/20 19:54 Dose: 650 mg Documented by: Albuterol/Ipratropium (Combivent Respimat) 0 gm INH Q4HRRT PRN PRN Reason: Dyspnea Benzonatate (Tessalon Perles) 100 mg PO TID PRN PRN Reason: Cough Dexamethasone (Dexamethasone) 6 mg PO DAILY [facility] Last Admin: 07/17/20 14:26 Dose: 6 mg Documented by: Docusate Sodium (Colace) 100 mg PO BID PRN PRN Reason: Constipation Enoxaparin Sodium (Lovenox) 40 mg SUBCUT Q24H [facility] Last Admin: 07/17/20 12:55 Dose: 40 mg Documented by: Fluconazole (Diflucan) 200 mg PO Q24H [facility] Last Admin: 07/17/20 19:56 Dose: 200 mg Documented by: Guaifenesin/Codeine Phosphate (Robitussin Ac) 10 ml PO Q4H PRN PRN Reason: Cough Remdesivir 100 mg/ Sodium (Chloride) 100 mls @ 100 mls/hr IV Q24H [facility] Stop: 07/21/20 14:29 Levofloxacin/Dextrose 750 mg/ (Premix) 150 mls @ 100 mls/hr IV Q24H [facility] Last Admin: 07/17/20 16:11 Dose: 100 mls/hr Documented by: Ondansetron HCl (Zofran) 4 mg IVPUSH Q4H PRN PRN Reason: Nausea Sodium Chloride (Saline Flush) 2.5 ml FLUSH ASDIRECTED PRN PRN Reason: Keep Vein Open Discontinued Medications Dextrose/Sodium Chloride (Dextrose 5%-Normal Saline) 1,000 mls @ 999 mls/hr IV ASDIRECTED [facility] Last Admin: 07/17/20 08:15 Dose: 999 mls/hr Documented by: Lactated Ringer's (Ringers, Lactated) 1,000 mls @ 125 mls/hr IV ONETIME ONE Stop: 07/17/20 19:55 Last Admin: 07/17/20 12:55 Dose: 125 mls/hr Documented by: Remdesivir 200 mg/ Sodium (Chloride) 250 mls @ 250 mls/hr IV ONETIME ONE Stop: 07/17/20 14:29 Last Admin: 07/17/20 14:28 Dose: 250 mls/hr Documented by: Iopamidol (Isovue Multipack-370 (76%)) 100 ml IVPUSH ONETIME STA Stop: 07/17/20 12:20 Last Admin: 07/17/20 12:20 Dose: 100 ml Documented by: - Exam Quality Assessment: DVT Prophylaxis. No: Supplemental Oxygen General: Alert, Oriented, Cooperative, No Acute Distress Lungs: Decreased Breath Sounds (Bibasilar). No: Normal Respiratory Effort (Dyspnea noted on speech as well as exertion) Cardiovascular: Regular Rate, Regular Rhythm GI/Abdominal Exam: Normal Bowel Sounds, Soft, Non-Tender Extremities: Normal Inspection, Normal Range of Motion, Non-Tender, No Pedal Edema Skin: Warm, Dry Neurological: No New Focal Deficit Psy/Mental Status: Alert, Normal Affect, Normal Mood Sepsis Event Note - Evaluation Sepsis Screening Result: No Definite Risk - Focused Exam Vital Signs: Vital Signs Temp Pulse Resp BP Pulse Ox 07/18/20 03:44 95 07/18/20 03:39 97.4 F 55 L 16 122/64 96 07/18/20 00:26 96.6 F L 60 16 123/69 95 - Problem List & Annotations (1) Acute respiratory failure with hypoxia SNOMED Code(s): 94363246, 483259594 Code(s): J96.01 - ACUTE RESPIRATORY FAILURE WITH HYPOXIA Status: Acute Current Visit: Yes (2) COVID-19 SNOMED Code(s): 858265062 Code(s): U07.1 - COVID-19 Status: Acute Current Visit: Yes (3) CAP (community acquired pneumonia) SNOMED Code(s): 765248944 Code(s): J18.9 - PNEUMONIA, UNSPECIFIED ORGANISM Status: Acute Current Visit: Yes (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 - COCCIDIOIDOMYCOSIS, UNSPECIFIED Status: Chronic Current Visit: Yes (5) Obesity SNOMED Code(s): 144564790, 961608595 Code(s): E66.9 - OBESITY, UNSPECIFIED Status: Chronic Current Visit: Yes (6) CHANTE on CPAP SNOMED Code(s): 44033258 Code(s): G47.33 - OBSTRUCTIVE SLEEP APNEA (ADULT) (PEDIATRIC); Z99.89 - DEPENDENCE ON OTHER ENABLING MACHINES AND DEVICES Status: Chronic Current Visit: Yes (7) Former smoker SNOMED Code(s): 6273047 Code(s): Z87.891 - PERSONAL HISTORY OF NICOTINE DEPENDENCE Status: Chronic Current Visit: Yes (8) Viral pneumonia SNOMED Code(s): 63167233 Code(s): J12.9 - VIRAL PNEUMONIA, UNSPECIFIED Status: Acute Current Visit: Yes - Problem List Review Problem List Initiated/Reviewed/Updated: Yes - My Orders Last 24 Hours: My Active Orders 07/17/20 Lunch Regular Diet [DIET] 07/17/20 11:48 Blood Culture x2 Reflex Set [OM.PC] Stat 07/17/20 11:56 Intake and Output [RC] Q12H Oxygen Therapy [RC] PRN RT Incentive Spirometry [RC] Q1HWA Up With Assistance [RC] ASDIRECTED VTE/DVT Education [RC] PER UNIT ROUTINE Vital Signs [RC] Q4H Acetaminophen [TylenoL] 650 mg PO Q4H PRN Albuterol/Ipratropium [Combivent Respimat] See Dose Instructions INH Q4HRRT PRN Docusate Sodium [Colace] 100 mg PO BID PRN Ondansetron [Zofran] 4 mg IVPUSH Q4H PRN Sodium Chloride 0.9% [Saline Flush] 2.5 ml FLUSH ASDIRECTED PRN RT Acapella [RESPCARE] Routine Saline Lock Insert [OM.PC] Routine Resuscitation Status Routine 07/17/20 11:58 RT Post Treatment Assessment [RC] Click to Edit RT Pre-Treatment Assessment [RC] Click to Edit 07/17/20 11:59 Telemetry Monitoring [Cardiac Monitoring] [RC] Q8H 07/17/20 12:00 Enoxaparin [Lovenox] 40 mg SUBCUT Q24H 07/17/20 13:02 CULTURE BLOOD [BC] Stat 07/17/20 13:34 CULTURE BLOOD [BC] Stat 07/17/20 13:53 Benzonatate [Tessalon Perles] 100 mg PO TID PRN Codeine/guaiFENesin [Robitussin AC] 10 ml PO Q4H PRN 07/17/20 14:00 dexAMETHasone 6 mg PO DAILY 07/17/20 15:00 Fluconazole [Diflucan] 200 mg PO Q24H 07/17/20 15:30 Levofloxacin/Dextrose 5%-Water [Levaquin in D5W 750 MG/150 ML] 750 mg Premix Bag 1 bag IV Q24H 07/17/20 16:19 CULTURE SPUTUM + SMEAR [RM] Stat 07/18/20 13:30 Remdesivir 100 mg Sodium Chloride 0.9% [Normal Saline] 100 ml IV Q24H 07/19/20 05:11 CBC WITH AUTO DIFF [HEME] AM COMPREHENSIVE METABOLIC PN,CMP [CHEM] AM MAGNESIUM [CHEM] AM 07/20/20 05:11 CBC WITH AUTO DIFF [HEME] AM COMPREHENSIVE METABOLIC PN,CMP [CHEM] AM MAGNESIUM [CHEM] AM 07/21/20 05:11 CBC WITH AUTO DIFF [HEME] AM COMPREHENSIVE METABOLIC PN,CMP [CHEM] AM MAGNESIUM [CHEM] AM 07/22/20 05:11 CBC WITH AUTO DIFF [HEME] AM COMPREHENSIVE METABOLIC PN,CMP [CHEM] AM MAGNESIUM [CHEM] AM - Plan Plan:: This 44-year-old male admitted with acute hypoxic respiratory failure, COVID-19, possible CAP 1. Acute hypoxic respiratory failure and COVID-19, viral pneumonia -CT angio revealed bilateral groundglass opacities consistent with Covid 19. No consolidation or lobar pneumonia noted pulmonary nodules previously noted and other CTs were not seen. -Continue remdesivir 100 mg IV daily x4 days -Dexamethasone 6 mg p.o. daily -Lovenox 40 mg subcu daily -Combivent as needed -Tessalon Perles and Robitussin as needed cough -Lactic acid improved with hydration yesterday. -Oxygen to keep sats greater than 92% -Continue use of CPAP at night -Encouraged I-S and Acapella use -Encouraged prone positioning as much as possible. Patient counseled on this and verbalized understanding -Unsure if this is reinfection or prolonged Covid infection. Continue to monitor 2. Possible CAP -Levaquin 750 mg IV daily -Blood cultures pending -Pulmonary toilet as above - sputum pending 3. 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 daily -HIV negative VTE prophylaxis: Lovenox GI prophylaxis: Protonix CODE STATUS: Full code Dispo: 2 to 3 days pending improvement
[2020-07-18] MEDS: Dexamethasone 4 MG Tab PO SCH (08:44)
[2020-07-18] MEDS: Enoxaparin 40 MG/0.4 ML Syringe SUBCUT SCH (12:51)
[2020-07-18] MEDS: REMDESIVIR 100 MG in Sodium Chloride 0.9% 100 ML IV SCH (12:53)
[2020-07-18] MEDS: Fluconazole 100 MG Tab PO SCH (14:17)
[2020-07-18] MEDS: Levofloxacin/Dextrose 5%-Water 750 MG in Premix Bag 1 BAG IV SCH (16:14)
[2020-07-19 07:12] LABS: BLOOD UREA NITROGEN,BUN 22 mg/dL (7.0-18.0); CARBON DIOXIDE,CO2 28.6 mmol/L (21.0-32.0); CHLORIDE,CL 101 mmol/L (98-107); GLUCOSE RANDOM 125 mg/dL (74-106); POTASSIUM,K 4.7 mmol/L (3.5-5.1); SODIUM,NA 137 mmol/L (136-148)
[2020-07-19] MEDS: Acetaminophen 325 MG Tab PO PRN ×2 (08:41→20:00)
[2020-07-19] MEDS: Dexamethasone 4 MG Tab PO SCH (08:41)
[2020-07-19] MEDS: Phenol 1.4% Oral Spray 177 ML Bottle MUCMEM PRN (08:42)
[2020-07-19] MEDS: REMDESIVIR 100 MG in Sodium Chloride 0.9% 100 ML IV SCH (13:14)
[2020-07-19] MEDS: Enoxaparin 40 MG/0.4 ML Syringe SUBCUT SCH (13:14)
[2020-07-19] MEDS: Fluconazole 100 MG Tab PO SCH (14:47)
[2020-07-19] MEDS: Levofloxacin/Dextrose 5%-Water 750 MG in Premix Bag 1 BAG IV SCH (14:48)
--- NOTE | 2020-07-19 15:11 | PCM.PN ---
- General Info Date of Service: 07/19/20 Admission Dx/Problem (Free Text): Admission Diagnosis/Problem Admission Diagnosis/Problem acute hypoxic respiratory failure, COVID-19, CAP Subjective Update: He is currently off oxygen satting 94% on room air, this AM had to be on oxygen for an hour or so.. Reports intermittent cough that is productive. Feels worn out today, thinks he over exerted himself yesterday, Denies any abdominal pain no diarrhea or constipation he is eating and drinking well. He is up ambulating in his room per self Functional Status: Reports: Tolerating Diet, Ambulating, Urinating - Review of Systems General: Reports: Weakness, Fatigue, Malaise. Denies: Fever Pulmonary: Reports: Shortness of Breath, Cough. Denies: Pleuritic Chest Pain Cardiovascular: Reports: Dyspnea on Exertion. Denies: Chest Pain, Palpitations Gastrointestinal: Denies: Abdominal Pain, Constipation, Decreased Appetite Genitourinary: Denies: Dysuria, Frequency, Burning Musculoskeletal: Denies: Neck Pain, Shoulder Pain, Arm Pain Skin: Denies: Cyanosis, Jaundice, Mottled Neurological: Denies: Confusion, Dizziness, Headache - Patient Data Vitals - Most Recent: Last Vital Signs Temp 36.3 C 07/19/20 11:40 Pulse 69 07/19/20 11:40 Resp 16 07/19/20 11:40 BP 114/59 L 07/19/20 11:40 Pulse Ox 93 L 07/19/20 11:40 Weight - Most Recent: 106.594 kg I&O - Last 24 Hours: Intake & Output 07/19/20 07/19/20 07/19/20 06:59 14:59 22:59 Intake Total 1100 Balance 1100 Lab Results Last 24 Hours: Laboratory Results - last 24 hr 07/19/20 07/19/20 Range/Units 06:45 06:45 WBC 9.63 (4.0-11.0) K/uL RBC 5.01 (4.50-5.90) M/uL Hgb 15.5 (13.0-17.0) g/dL Hct 46.4 (38.0-50.0) % MCV 92.6 (80.0-98.0) fL MCH 30.9 (27.0-32.0) pg MCHC 33.4 (31.0-37.0) g/dL RDW Std Deviation 47.4 (28.0-62.0) fl RDW Coeff of Omaira 14 (11.0-15.0) % Plt Count 170 (150-400) K/uL MPV 8.90 (7.40-12.00) fL Neut % (Auto) 89.6 H (48.0-80.0) % Lymph % (Auto) 6.4 L (16.0-40.0) % [place] % (Auto) 4.0 (0.0-15.0) % Eos % (Auto) 0.0 (0.0-7.0) % Baso % (Auto) 0.0 (0.0-1.5) % Neut # (Auto) 8.6 H (1.4-5.7) K/uL Lymph # (Auto) 0.6 (0.6-2.4) K/uL [place] # (Auto) 0.4 (0.0-0.8) K/uL Eos # (Auto) 0.0 (0.0-0.7) K/uL Baso # (Auto) 0.0 (0.0-0.1) K/uL Nucleated RBC % 0.0 /100WBC Nucleated RBCs # 0 K/uL Sodium 137 (136-148) mmol/L Potassium 4.7 (3.5-5.1) mmol/L Chloride 101 (98-107) mmol/L Carbon Dioxide 28.6 (21.0-32.0) mmol/L BUN 22 H (7.0-18.0) mg/dL Creatinine 1.2 (0.8-1.3) mg/dL Est Cr Clr Drug Dosing 81.96 mL/min Estimated GFR (MDRD) > 60.0 ml/min Glucose 125 H (74-106) mg/dL Calcium 9.1 (8.5-10.1) mg/dL Magnesium 2.5 H (1.8-2.4) mg/dL Total Bilirubin 0.3 (0.2-1.0) mg/dL AST 23 (15-37) IU/L ALT 51 (14-63) IU/L Alkaline Phosphatase 16 L (46-116) U/L Total Protein 7.0 (6.4-8.2) g/dL Albumin 2.4 L (3.4-5.0) g/dL Globulin 4.6 H (2.6-4.0) g/dL Albumin/Globulin Ratio 0.5 L (0.9-1.6) Colt Results Last 24 Hours: Microbiology 07/17/20 13:34 Aerobic Blood Culture - Preliminary Blood - Venous - Lab Draw NO GROWTH AFTER 2 DAYS Anaerobic Blood Culture - Preliminary NO GROWTH AFTER 2 DAYS 07/17/20 13:02 Aerobic Blood Culture - Preliminary Blood - Venous NO GROWTH AFTER 2 DAYS Anaerobic Blood Culture - Preliminary NO GROWTH AFTER 2 DAYS 07/17/20 16:19 Gram Stain - Final Sputum - Expectorated Sputum Culture - Final Normal Respiratory [place] Med Orders - Current: Current Medications Acetaminophen (Tylenol) 650 mg PO Q4H PRN PRN Reason: Pain (Mild 1-3)/fever Last Admin: 07/19/20 08:41 Dose: 650 mg Documented by: Albuterol/Ipratropium (Combivent Respimat) 0 gm INH Q4HRRT PRN PRN Reason: Dyspnea Benzonatate (Tessalon Perles) 100 mg PO TID PRN PRN Reason: Cough Dexamethasone (Dexamethasone) 6 mg PO DAILY [facility] Last Admin: 07/19/20 08:41 Dose: 6 mg Documented by: Docusate Sodium (Colace) 100 mg PO BID PRN PRN Reason: Constipation Enoxaparin Sodium (Lovenox) 40 mg SUBCUT Q24H [facility] Last Admin: 07/19/20 13:14 Dose: 40 mg Documented by: Fluconazole (Diflucan) 200 mg PO Q24H [facility] Last Admin: 07/19/20 14:47 Dose: 200 mg Documented by: Guaifenesin/Codeine Phosphate (Robitussin Ac) 10 ml PO Q4H PRN PRN Reason: Cough Remdesivir 100 mg/ Sodium (Chloride) 100 mls @ 100 mls/hr IV Q24H [facility] Stop: 07/21/20 14:29 Last Admin: 07/19/20 13:14 Dose: 100 mls/hr Documented by: Levofloxacin/Dextrose 750 mg/ (Premix) 150 mls @ 100 mls/hr IV Q24H [facility] Last Admin: 07/19/20 14:48 Dose: 100 mls/hr Documented by: Ondansetron HCl (Zofran) 4 mg IVPUSH Q4H PRN PRN Reason: Nausea Phenol/Menthol (Chloraseptic Throat [place]) 0 ml MUCMEM Q2H PRN PRN Reason: Pain Last Admin: 07/19/20 08:42 Dose: 1 spray Documented by: Sodium Chloride (Saline Flush) 2.5 ml FLUSH ASDIRECTED PRN PRN Reason: Keep Vein Open Last Admin: 07/19/20 08:51 Dose: 2.5 ml Documented by: Discontinued Medications Dextrose/Sodium Chloride (Dextrose 5%-Normal Saline) 1,000 mls @ 999 mls/hr IV ASDIRECTED [facility] Last Admin: 07/17/20 08:15 Dose: 999 mls/hr Documented by: Lactated Ringer's (Ringers, Lactated) 1,000 mls @ 125 mls/hr IV ONETIME ONE Stop: 07/17/20 19:55 Last Admin: 07/17/20 12:55 Dose: 125 mls/hr Documented by: Remdesivir 200 mg/ Sodium (Chloride) 250 mls @ 250 mls/hr IV ONETIME ONE Stop: 07/17/20 14:29 Last Admin: 07/17/20 14:28 Dose: 250 mls/hr Documented by: Iopamidol (Isovue Multipack-370 (76%)) 100 ml IVPUSH ONETIME STA Stop: 07/17/20 12:20 Last Admin: 07/17/20 12:20 Dose: 100 ml Documented by: - Exam Quality Assessment: No: Supplemental Oxygen General: Oriented, Mild Distress Lungs: Clear to Auscultation, Normal Respiratory Effort Cardiovascular: Regular Rate, Regular Rhythm GI/Abdominal Exam: Normal Bowel Sounds, Soft, Non-Tender Sepsis Event Note - Evaluation Sepsis Screening Result: No Definite Risk - Focused Exam Vital Signs: Vital Signs Temp Pulse Resp BP BP Pulse Ox Pulse Ox 07/19/20 11:40 36.3 C 69 16 114/59 L 93 L 07/19/20 10:13 16 94 L 99 07/19/20 08:19 36.2 C 52 L 16 124/68 92 L 07/19/20 08:15 15 88 L 07/19/20 04:10 35.4 C L 57 L 14 121/66 96 - Problem List & Annotations (1) Acute respiratory failure with hypoxia SNOMED Code(s): 82328225, 838710276 Code(s): J96.01 - ACUTE RESPIRATORY FAILURE WITH HYPOXIA Status: Acute Current Visit: Yes (2) CAP (community acquired pneumonia) SNOMED Code(s): 912535200 Code(s): J18.9 - PNEUMONIA, UNSPECIFIED ORGANISM Status: Acute Current Visit: Yes (3) COVID-19 SNOMED Code(s): 475364018 Code(s): U07.1 - COVID-19 Status: Acute Current Visit: Yes (4) Hypoxemia SNOMED Code(s): 531672522 Code(s): R09.02 - HYPOXEMIA Status: Acute Current Visit: Yes (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 - COCCIDIOIDOMYCOSIS, UNSPECIFIED Status: Chronic Current Visit: Yes (6) Former smoker SNOMED Code(s): 6290268 Code(s): Z87.891 - PERSONAL HISTORY OF NICOTINE DEPENDENCE Status: Chronic Current Visit: Yes (7) CHANTE on CPAP SNOMED Code(s): 23342639 Code(s): G47.33 - OBSTRUCTIVE SLEEP APNEA (ADULT) (PEDIATRIC); Z99.89 - DEPENDENCE ON OTHER ENABLING MACHINES AND DEVICES Status: Chronic Current Visit: Yes (8) Obesity SNOMED Code(s): 205433673, 502902933 Code(s): E66.9 - OBESITY, UNSPECIFIED Status: Chronic Current Visit: Yes - Problem List Review Problem List Initiated/Reviewed/Updated: Yes - Plan Plan:: This 44-year-old male admitted with acute hypoxic respiratory failure, COVID-19, possible CAP 1. Acute hypoxic respiratory failure and COVID-19, viral pneumonia -CT angio revealed bilateral groundglass opacities consistent with Covid 19. No consolidation or lobar pneumonia noted pulmonary nodules previously noted and other CTs were not seen. -Continue remdesivir 100 mg IV daily x4 days -Dexamethasone 6 mg p.o. daily -Lovenox 40 mg subcu daily -Combivent as needed -Tessalon Perles and Robitussin as needed cough -Oxygen to keep sats greater than 92% -Continue use of CPAP at night -Encouraged I-S and Acapella use -Encouraged prone positioning as much as possible. Patient counseled on this and verbalized understanding -Unsure if this is reinfection or prolonged Covid infection. - Will consider PT if continues to be weak 2. Possible CAP -Levaquin 750 mg IV daily -Blood cultures pending -Pulmonary toilet as above - sputum pending 3. 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 daily -HIV negative VTE prophylaxis: Lovenox GI prophylaxis: Protonix CODE STATUS: Full code Dispo: 2 to 3 days pending improvement
[2020-07-19] MEDS ORDERED: Aluminum Hydroxide/Magnesium Hydroxide/Simethicone Susp 30 ML Cup PO PRN (19:18)
[2020-07-19] MEDS: Melatonin 3 MG Tab PO SCH (20:03)
[2020-07-20 06:31] LABS: BLOOD UREA NITROGEN,BUN 27 mg/dL (7.0-18.0); CARBON DIOXIDE,CO2 27.2 mmol/L (21.0-32.0); CHLORIDE,CL 103 mmol/L (98-107); GLUCOSE RANDOM 117 mg/dL (74-106); POTASSIUM,K 4.6 mmol/L (3.5-5.1); SODIUM,NA 138 mmol/L (136-148)
[2020-07-20] MEDS: Dexamethasone 4 MG Tab PO SCH (09:34)
[2020-07-20] MEDS: Enoxaparin 40 MG/0.4 ML Syringe SUBCUT SCH (12:03)
[2020-07-20] MEDS: Phenol 1.4% Oral Spray 177 ML Bottle MUCMEM PRN (12:05)
[2020-07-20] MEDS: REMDESIVIR 100 MG in Sodium Chloride 0.9% 100 ML IV SCH (13:16)
--- NOTE | 2020-07-20 14:03 | PCM.PN ---
- General Info Date of Service: 07/20/20 - Review of Systems Systems Review Comment:: no fevers, reports cough and shortness of breath with exertion. - Patient Data Vitals - Most Recent: Last Vital Signs Temp 36.0 C L 07/20/20 13:19 Pulse 65 07/20/20 13:19 Resp 16 07/20/20 13:19 BP 123/70 07/20/20 13:19 Pulse Ox 94 L 07/20/20 13:19 Weight - Most Recent: 104.054 kg I&O - Last 24 Hours: Intake & Output 07/19/20 07/20/20 07/20/20 22:59 06:59 14:59 Intake Total 1030 1220 Output Total 800 300 Balance 230 920 Lab Results Last 24 Hours: Laboratory Results - last 24 hr 07/20/20 07/20/20 Range/Units 05:58 05:58 WBC 9.31 (4.0-11.0) K/uL RBC 4.97 (4.50-5.90) M/uL Hgb 15.0 (13.0-17.0) g/dL Hct 46.3 (38.0-50.0) % MCV 93.2 (80.0-98.0) fL MCH 30.2 (27.0-32.0) pg MCHC 32.4 (31.0-37.0) g/dL RDW Std Deviation 47.5 (28.0-62.0) fl RDW Coeff of Omaira 14 (11.0-15.0) % Plt Count 185 (150-400) K/uL MPV 8.80 (7.40-12.00) fL Neut % (Auto) 88.3 H (48.0-80.0) % Lymph % (Auto) 6.7 L (16.0-40.0) % [place] % (Auto) 5.0 (0.0-15.0) % Eos % (Auto) 0.0 (0.0-7.0) % Baso % (Auto) 0.0 (0.0-1.5) % Neut # (Auto) 8.2 H (1.4-5.7) K/uL Lymph # (Auto) 0.6 (0.6-2.4) K/uL [place] # (Auto) 0.5 (0.0-0.8) K/uL Eos # (Auto) 0.0 (0.0-0.7) K/uL Baso # (Auto) 0.0 (0.0-0.1) K/uL Nucleated RBC % 0.0 /100WBC Nucleated RBCs # 0 K/uL Sodium 138 (136-148) mmol/L Potassium 4.6 (3.5-5.1) mmol/L Chloride 103 (98-107) mmol/L Carbon Dioxide 27.2 (21.0-32.0) mmol/L BUN 27 H (7.0-18.0) mg/dL Creatinine 1.2 (0.8-1.3) mg/dL Est Cr Clr Drug Dosing 81.96 mL/min Estimated GFR (MDRD) > 60.0 ml/min Glucose 117 H (74-106) mg/dL Calcium 8.6 (8.5-10.1) mg/dL Magnesium 2.5 H (1.8-2.4) mg/dL Total Bilirubin 0.3 (0.2-1.0) mg/dL AST 20 (15-37) IU/L ALT 50 (14-63) IU/L Alkaline Phosphatase 17 L (46-116) U/L Total Protein 6.5 (6.4-8.2) g/dL Albumin 2.3 L (3.4-5.0) g/dL Globulin 4.2 H (2.6-4.0) g/dL Albumin/Globulin Ratio 0.6 L (0.9-1.6) Colt Results Last 24 Hours: Microbiology 07/17/20 13:34 Aerobic Blood Culture - Preliminary Blood - Venous - Lab Draw NO GROWTH AFTER 3 DAYS Anaerobic Blood Culture - Preliminary NO GROWTH AFTER 3 DAYS 07/17/20 13:02 Aerobic Blood Culture - Preliminary Blood - Venous NO GROWTH AFTER 3 DAYS Anaerobic Blood Culture - Preliminary NO GROWTH AFTER 3 DAYS Med Orders - Current: Current Medications Acetaminophen (Tylenol) 650 mg PO Q4H PRN PRN Reason: Pain (Mild 1-3)/fever Last Admin: 07/19/20 20:00 Dose: 650 mg Documented by: Al Hydroxide/Mg Hydroxide (Mag-Al Plus) 30 ml PO Q4H PRN PRN Reason: Heartburn Last Admin: 07/19/20 19:54 Dose: 30 ml Documented by: Albuterol/Ipratropium (Combivent Respimat) 0 gm INH Q4HRRT PRN PRN Reason: Dyspnea Benzonatate (Tessalon Perles) 100 mg PO TID PRN PRN Reason: Cough Dexamethasone (Dexamethasone) 6 mg PO DAILY [facility] Last Admin: 07/20/20 09:34 Dose: 6 mg Documented by: Docusate Sodium (Colace) 100 mg PO BID PRN PRN Reason: Constipation Enoxaparin Sodium (Lovenox) 40 mg SUBCUT Q24H [facility] Last Admin: 07/20/20 12:03 Dose: 40 mg Documented by: Fluconazole (Diflucan) 200 mg PO Q24H [facility] Last Admin: 07/19/20 14:47 Dose: 200 mg Documented by: Guaifenesin/Codeine Phosphate (Robitussin Ac) 10 ml PO Q4H PRN PRN Reason: Cough Last Admin: 07/20/20 06:31 Dose: 10 ml Documented by: Remdesivir 100 mg/ Sodium (Chloride) 100 mls @ 100 mls/hr IV Q24H [facility] Stop: 07/21/20 14:29 Last Admin: 07/20/20 13:16 Dose: 100 mls/hr Documented by: Levofloxacin/Dextrose 750 mg/ (Premix) 150 mls @ 100 mls/hr IV Q24H [facility] Last Admin: 07/19/20 14:48 Dose: 100 mls/hr Documented by: Melatonin (Melatonin) 3 mg PO BEDTIME [facility] Last Admin: 07/19/20 20:03 Dose: 3 mg Documented by: Ondansetron HCl (Zofran) 4 mg IVPUSH Q4H PRN PRN Reason: Nausea Phenol/Menthol (Chloraseptic Throat [place]) 0 ml MUCMEM Q2H PRN PRN Reason: Pain Last Admin: 07/20/20 12:05 Dose: 1 spray Documented by: Sodium Chloride (Saline Flush) 2.5 ml FLUSH ASDIRECTED PRN PRN Reason: Keep Vein Open Last Admin: 07/19/20 08:51 Dose: 2.5 ml Documented by: Discontinued Medications Dextrose/Sodium Chloride (Dextrose 5%-Normal Saline) 1,000 mls @ 999 mls/hr IV ASDIRECTED [facility] Last Admin: 07/17/20 08:15 Dose: 999 mls/hr Documented by: Lactated Ringer's (Ringers, Lactated) 1,000 mls @ 125 mls/hr IV ONETIME ONE Stop: 07/17/20 19:55 Last Admin: 07/17/20 12:55 Dose: 125 mls/hr Documented by: Remdesivir 200 mg/ Sodium (Chloride) 250 mls @ 250 mls/hr IV ONETIME ONE Stop: 07/17/20 14:29 Last Admin: 07/17/20 14:28 Dose: 250 mls/hr Documented by: Iopamidol (Isovue Multipack-370 (76%)) 100 ml IVPUSH ONETIME STA Stop: 07/17/20 12:20 Last Admin: 07/17/20 12:20 Dose: 100 ml Documented by: - Exam General: Alert, Oriented GI/Abdominal Exam: Soft, Non-Tender, No Distention Extremities: Non-Tender, No Pedal Edema Skin: Warm, Dry, Intact Neurological: No New Focal Deficit Sepsis Event Note - Evaluation Sepsis Screening Result: No Definite Risk - Focused Exam Vital Signs: Vital Signs Temp Pulse Resp BP Pulse Ox 07/20/20 13:19 36.0 C L 65 16 123/70 94 L 07/20/20 09:30 36.3 C 63 15 132/75 94 L 07/20/20 04:00 36.0 C L 59 L 16 128/52 L 94 L - Problem List Review Problem List Initiated/Reviewed/Updated: Yes - Plan Plan:: This 44-year-old male admitted with acute hypoxic respiratory failure, COVID-19, possible CAP 1. Acute hypoxic respiratory failure and COVID-19, viral pneumonia -CT angio revealed bilateral groundglass opacities consistent with Covid 19. No consolidation or lobar pneumonia noted pulmonary nodules previously noted and other CTs were not seen. -Continue remdesivir 100 mg IV daily x4 days -Dexamethasone 6 mg p.o. daily -Lovenox 40 mg subcu daily -Combivent as needed -Tessalon Perles and Robitussin as needed cough -Oxygen to keep sats greater than 92% -Continue use of CPAP at night -Encouraged I-S and Acapella use -Encouraged prone positioning as much as possible. Patient counseled on this and verbalized understanding -Unsure if this is reinfection or prolonged Covid infection. - Will consider PT if continues to be weak 2. Possible CAP -Levaquin 750 mg IV daily 3. 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 daily -HIV negative VTE prophylaxis: Lovenox GI prophylaxis: Protonix CODE STATUS: Full code Dispo: plan on dischare home tomorrow
[2020-07-20] MEDS: Fluconazole 100 MG Tab PO SCH (14:42)
[2020-07-20] MEDS: Levofloxacin/Dextrose 5%-Water 750 MG in Premix Bag 1 BAG IV SCH (14:43)
[2020-07-20] MEDS: Melatonin 3 MG Tab PO SCH (21:30)
[2020-07-21 07:05] LABS: BLOOD UREA NITROGEN,BUN 26 mg/dL (7.0-18.0); CARBON DIOXIDE,CO2 24.2 mmol/L (21.0-32.0); CHLORIDE,CL 101 mmol/L (98-107); GLUCOSE RANDOM 128 mg/dL (74-106); POTASSIUM,K 4.7 mmol/L (3.5-5.1); SODIUM,NA 137 mmol/L (136-148)
[2020-07-21] MEDS: Dexamethasone 4 MG Tab PO SCH (09:04)
[2020-07-21] MEDS ORDERED: REMDESIVIR 100 MG in Sodium Chloride 0.9% 100 ML IV SCH (11:00)
[2020-07-21] MEDS ORDERED: Levofloxacin 250 MG Tab PO ONE (11:00)
[2020-07-21] MEDS: Enoxaparin 40 MG/0.4 ML Syringe SUBCUT SCH (11:47)
[2020-07-21 11:50] VITALS: BP 136/75; PULSE 74
--- NOTE | 2020-07-21 14:36 | PCM.DCSUM1 ---
Discharge Summary - Hospital Course Brief History: This 44-year-old male with past medical history of obesity, CHANTE, fungal lung infection, and Covid presented to the ER today with concerns of worsening shortness of breath and generalized fatigue and malaise. He reports that his generalized malaise and fatigue has worsened over the last couple weeks along with his breathing. He reports that he started noticing worsening shortness of breath a couple weeks ago and this has progressively worsened to the point today that he is unable to do many activities without severe fatigue and shortness of breath. He reports he has had fevers and chills at home along with productive cough and pleuritic chest pain. He denies any chest pain with exertion. No dizziness. He does report headache sinus congestion sore throat as well. He denies any neck pain or nuchal rigidity. He denies any abdominal pain. He does report mild nausea and poor appetite. He denies any diarrhea or black or bloody bowel movements and no constipation. No trouble voiding. He reports that his was recently diagnosed with Covid and is into her quarantine on Tuesday. He reports that he was diagnosed with Covid in April but did not require hospitalization or an ER visit and was not treated with any medications at that time. He did see his PCP the end of May and was started on dexamethasone 6 mg twice daily for residual shortness of breath and fatigue from prior diagnosis of Covid. He also had been taking Diflucan 200 mg daily for fungal infection that was diagnosed in February in [facility]. He reports approximately 4 days ago he ran out of his Diflucan and finished taking the dexamethasone. He denies ever having any type of bronchoscopy or biopsy to diagnose this fungal infection. He reports they found groundglass opacities on his x-ray. He reports he saw a paginator, Dr. Salgado, in [place] we will attempt to get records. He reports he has not tried to take any medications to improve symptoms including Tylenol or Motrin. He is a former smoker quit tobacco in early 1999's along with alcohol use. He also denies any recreational drug use. He has no history of hypertension or diabetes and no CAD. Upon chart review, it appears he was previously had a stress test due to left-sided chest pain. Stress test revealed possible decreased uptake along the inferior wall but upon further evaluation cardiology felt this is likely not ischemia. EF 65% in 2018. In the ER leukocytosis noted at 12,000 neutrophil count slightly elevated showing a left shift. Electrolytes within normal limits BUN 21 creatinine 1.3. Troponin negative. Chest x-ray reveals ill-defined pneumonia and pulmonary edema and or atelectasis suspected in the lower lobes Covid pneumonitis is not definite but possible. Upon arrival to the ER he was noted to be hypoxic mid 80s on room air he was placed on 6 L of oxygen and slowly weaned down to 3 L nasal cannula. He has maintained sats 95% on 3 L well. Patient will be admitted inpatient due to acute hypoxic respiratory failure, Covid and possible community acquired pneumonia. PCP Dr. Cui. outside chart review: Received chart from Dr. Salgado, pulmonology in [facility]. Upon review it appears patient was seen at an outside clinic and sent for consultation with pulmonology due to a lung nodule. He had a CT on February 19, 2020 that showed multiple pulmonary nodules most severe 6.7 mm solid pulmonary nodule within the upper lobe on the right the exam is negative for pulmonary embolus and there was nonspecific bilateral ground glass infiltrates noted he also had noted cough with some atypical chest pain weight loss and obstructive sleep apnea. Signif icant amount of tests were run including ESR CRP fungal antibodies Covid swabbing Coccidioides and quantiferon. She did recommend a PET scan but due to no insurance he did not want to perform this but all the lab studies were performed. He was started on Diflucan 200 mg twice daily empirically with high suspicion of coccidioidomycosis. He reports he continued this Diflucan twice daily but now has been taking it once a day per Dr. Salgado's recommendations. All testing revealed negative quantiferon plus was negative ESR and CRP were not significantly elevated fungal antibodies were completed which all appeared negative these included Aspergillus fumigatus flavus and [place] which were all negative Blastomyces and histoplasma were also negative Coccidioides IgE and IgM were both negative. Covid swab was also negative at this time. 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: 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 - COCCIDIOIDOMYCOSIS, UNSPECIFIED Status: Chronic (5) Obesity SNOMED Code(s): 326903414, 115220124 ICD Code: E66.9 - OBESITY, UNSPECIFIED Status: Chronic (6) CHANTE on CPAP SNOMED Code(s): 71569144 ICD Code: G47.33 - OBSTRUCTIVE SLEEP APNEA (ADULT) (PEDIATRIC); Z99.89 - DEPENDENCE ON OTHER ENABLING MACHINES AND DEVICES Status: Chronic (7) Former smoker SNOMED Code(s): 0028340 ICD Code: Z87.891 - PERSONAL HISTORY OF NICOTINE DEPENDENCE Status: Chronic (8) Viral pneumonia SNOMED Code(s): 46346227 ICD Code: J12.9 - VIRAL PNEUMONIA, UNSPECIFIED Status: Acute - Patient Summary/Data Hospital Course: Admission diagnoses: Acute hypoxic respiratory failure COVID-19 CAP Viral pneumonia Discharge diagnoses: Acute hypoxic respiratory failure resolved COVID-19 CAP Viral pneumonia Other PMH; Coccidioidomycosis Obesity CHANTE on CPAP Former smoker Sam was admitted secondary to acute hypoxic respiratory failure arising from COVID-19 viral pneumonia and CAP. He was started on remdesivir along with dexamethasone 6 mg p.o. daily. He was also started on Levaquin 750 mg IV daily. CTA of the chest did not reveal any pulmonary emboli. He was continued on his Diflucan 200 mg daily for history of coccidioidomycosis. He steadily improved during admission. He was weaned off of oxygen on day 2 of admission. We continued to severity for a total of 5 days. He is feeling much improved today and has remained off oxygen for 2 days. He does have some mild dyspnea on exertion but reports this is much improved from admission. He is eager for discharge home today. He will continue Levaquin for 3 more days at home. He is to continue quarantine for a total of 20 days from symptom presents. Which acco rding to the patient was July 09. He can be taken off quarantine on July 30. He was notified of this and is aware. Work note received. He is to follow- up with PCP as an outpatient. I did give a prescription for 30 days of Diflucan as he has run out of his prescription. He will likely need to follow-up with pulmonology to monitor fungal infection. He is to return to ER or clinic if con cerns should arise. - Patient Instructions Diet: Regular Diet as Tolerated Activity: No Strenuous Activities Driving: Do Not Drive Showering/Bathing: May Shower Notify Provider of: Fever, Increased Pain, Swelling and Redness, Drainage, Nausea and/or Vomiting Other/Special Instructions: Quarantine for total of 20 days since symptoms in June, CDC recommends longer length of quarantine for individuals needing hospitalization due to COVID. First symptoms Jul 09, Positive test date July 17. last quarantine day Jul 3th. Once off quarantine, continue to wear a mask in public. - Discharge Plan *PRESCRIPTION DRUG MONITORING PROGRAM REVIEWED*: Not Applicable *COPY OF PRESCRIPTION DRUG MONITORING REPORT IN PATIENT TERRENCE: Not Applicable Prescriptions/Med Rec: Fluconazole [Diflucan] 200 mg PO DAILY #30 tablet levoFLOXacin [Levaquin] 750 mg PO DAILY #3 tab Home Medications: Home Meds Albuterol Sulfate [Proventil Hfa] 2 puff INH DAILY 07/17/20 [History] Budesonide/Formoterol Fumarate [Symbicort 160-4.5 Mcg Inhaler] 2 puff INH DAILY 07/17/20 [History] PARoxetine [Paxil] 10 mg PO DAILY 07/17/20 [History] Acetaminophen [Tylenol] 650 mg PO Q4H PRN tablet 07/21/20 [Rx] Albuterol/Ipratropium [Combivent Respimat] 1 inh INH Q4HRRT PRN #1 inhaler 07/21/20 [Rx] Fluconazole [Diflucan] 200 mg PO DAILY #30 tablet 07/21/20 [Rx] levoFLOXacin [Levaquin] 750 mg PO DAILY #3 tab 07/21/20 [Rx] Oxygen Therapy Mode: Room Air Patient Handouts: COVID-19: What Your Test Results Mean - CDC, COVID-19 Frequently Asked Questions, COVID-19, Fluconazole tablets, Levofloxacin tablets, Prevent the Spread of COVID-19 if You Are Sick - [facility] Referrals: Alexey Cui MD [Ordering Only Provider] - 08/01/20 7:00 am - Discharge Summary/Plan Comment DC Time >30 min.: No - Patient Data Vitals - Most Recent: Last Vital Signs Temp 97.3 F 07/21/20 11:48 Pulse 74 07/21/20 11:48 Resp 15 07/21/20 11:48 BP 136/75 07/21/20 11:48 Pulse Ox 95 07/21/20 11:48 Weight - Most Recent: 104.054 kg I&O - Last 24 hours: Intake & Output 07/20/20 07/21/20 07/21/20 22:59 06:59 14:59 Intake Total 1510 440 600 Output Total 600 880 500 Balance 910 -440 100 Lab Results - Last 24 hrs: Laboratory Results - last 24 hr 07/21/20 07/21/20 Range/Units 06:04 06:04 WBC 7.78 (4.0-11.0) K/uL RBC 5.15 (4.50-5.90) M/uL Hgb 15.7 (13.0-17.0) g/dL Hct 47.0 (38.0-50.0) % MCV 91.3 (80.0-98.0) fL MCH 30.5 (27.0-32.0) pg MCHC 33.4 (31.0-37.0) g/dL RDW Std Deviation 46.6 (28.0-62.0) fl RDW Coeff of Oma[place] 14 (11.0-15.0) % Plt Count 173 (150-400) K/uL MPV 8.90 (7.40-12.00) fL Neut % (Auto) 85.0 H (48.0-80.0) % Lymph % (Auto) 8.2 L (16.0-40.0) % Karnes % (Auto) 6.8 (0.0-15.0) % Eos % (Auto) 0.0 (0.0-7.0) % Baso % (Auto) 0.0 (0.0-1.5) % Neut # (Auto) 6.6 H (1.4-5.7) K/uL Lymph # (Auto) 0.6 (0.6-2.4) K/uL [place] # (Auto) 0.5 (0.0-0.8) K/uL Eos # (Auto) 0.0 (0.0-0.7) K/uL Baso # (Auto) 0.0 (0.0-0.1) K/uL Nucleated RBC % 0.0 /100WBC Nucleated RBCs # 0 K/uL Sodium 137 (136-148) mmol/L Potassium 4.7 (3.5-5.1) mmol/L Chloride 101 (98-107) mmol/L Carbon Dioxide 24.2 (21.0-32.0) mmol/L BUN 26 H (7.0-18.0) mg/dL Creatinine 1.1 (0.8-1.3) mg/dL Est Cr Clr Drug Dosing 89.41 mL/min Estimated GFR (MDRD) > 60.0 ml/min Glucose 128 H (74-106) mg/dL Calcium 8.6 (8.5-10.1) mg/dL Magnesium 2.5 H (1.8-2.4) mg/dL Total Bilirubin 0.3 (0.2-1.0) mg/dL AST 21 (15-37) IU/L ALT 48 (14-63) IU/L Alkaline Phosphatase 18 L (46-116) U/L Total Protein 5.8 L (6.4-8.2) g/dL Albumin 2.4 L (3.4-5.0) g/dL Globulin 3.4 (2.6-4.0) g/dL Albumin/Globulin Ratio 0.7 L (0.9-1.6) PARUL Results - Last 24 hrs: Microbiology 07/17/20 13:34 Aerobic Blood Culture - Preliminary Blood - Venous - Lab Draw NO GROWTH AFTER 4 DAYS Anaerobic Blood Culture - Preliminary NO GROWTH AFTER 4 DAYS 07/17/20 13:02 Aerobic Blood Culture - Preliminary Blood - Venous NO GROWTH AFTER 4 DAYS Anaerobic Blood Culture - Preliminary NO GROWTH AFTER 4 DAYS Med Orders - Current: Current Medications Discontinued Medications Acetaminophen (Tylenol) 650 mg PO Q4H PRN PRN Reason: Pain (Mild 1-3)/fever Last Admin: 07/19/20 20:00 Dose: 650 mg Documented by: Al Hydroxide/Mg Hydroxide (Mag-Al Plus) 30 ml PO Q4H PRN PRN Reason: Heartburn Last Admin: 07/19/20 19:54 Dose: 30 ml Documented by: Albuterol/Ipratropium (Combivent Respimat) 0 gm INH Q4HRRT PRN PRN Reason: Dyspnea Benzonatate (Tessalon Perles) 100 mg PO TID PRN PRN Reason: Cough Dexamethasone (Dexamethasone) 6 mg PO DAILY [facility] Last Admin: 07/21/20 09:04 Dose: 6 mg Documented by: Docusate Sodium (Colace) 100 mg PO BID PRN PRN Reason: Constipation Enoxaparin Sodium (Lovenox) 40 mg SUBCUT Q24H [facility] Last Admin: 07/21/20 11:47 Dose: 40 mg Documented by: Fluconazole (Diflucan) 200 mg PO Q24H [facility] Last Admin: 07/20/20 14:42 Dose: 200 mg Documented by: Guaifenesin/Codeine Phosphate (Robitussin Ac) 10 ml PO Q4H PRN PRN Reason: Cough Last Admin: 07/20/20 06:31 Dose: 10 ml Documented by: Dextrose/Sodium Chloride (Dextrose 5%-Normal Saline) 1,000 mls @ 999 mls/hr IV ASDIRECTED [facility] Last Admin: 07/17/20 08:15 Dose: 999 mls/hr Documented by: Lactated Ringer's (Ringers, Lactated) 1,000 mls @ 125 mls/hr IV ONETIME ONE Stop: 07/17/20 19:55 Last Admin: 07/17/20 12:55 Dose: 125 mls/hr Documented by: Remdesivir 100 mg/ Sodium (Chloride) 100 mls @ 100 mls/hr IV Q24H [facility] Stop: 07/21/20 14:29 Last Admin: 07/20/20 13:16 Dose: 100 mls/hr Documented by: Remdesivir 200 mg/ Sodium (Chloride) 250 mls @ 250 mls/hr IV ONETIME ONE Stop: 07/17/20 14:29 Last Admin: 07/17/20 14:28 Dose: 250 mls/hr Documented by: Levofloxacin/Dextrose 750 mg/ (Premix) 150 mls @ 100 mls/hr IV Q24H [facility] Last Admin: 07/20/20 14:43 Dose: 100 mls/hr Documented by: Remdesivir 100 mg/ Sodium (Chloride) 100 mls @ 100 mls/hr IV Q24H [facility] Stop: 07/21/20 11:59 Last Admin: 07/21/20 10:46 Dose: 100 mls/hr Documented by: Iopamidol (Isovue Multipack-370 (76%)) 100 ml IVPUSH ONETIME STA Stop: 07/17/20 12:20 Last Admin: 07/17/20 12:20 Dose: 100 ml Documented by: Levofloxacin (Levaquin) 750 mg PO ONETIME ONE Stop: 07/21/20 11:01 Last Admin: 07/21/20 10:46 Dose: 750 mg Documented by: Melatonin (Melatonin) 3 mg PO BEDTIME [facility] Last Admin: 07/20/20 21:30 Dose: Not Given Documented by: Ondansetron HCl (Zofran) 4 mg IVPUSH Q4H PRN PRN Reason: Nausea Phenol/Menthol (Chloraseptic Throat [place]) 0 ml MUCMEM Q2H PRN PRN Reason: Pain Last Admin: 07/20/20 12:05 Dose: 1 spray Documented by: Sodium Chloride (Saline Flush) 2.5 ml FLUSH ASDIRECTED PRN PRN Reason: Keep Vein Open Last Admin: 07/19/20 08:51 Dose: 2.5 ml Documented by:
== END 2020-07-21 12:20 | disposition home or self-care (01) | DRG 177 ==
LOC: MW.ED 07:39 → MW.MS 09:45
PROVIDERS: ADMIT Student in an Organized Health Care Education/Training Program; ATTEND Student in an Organized Health Care Education/Training Program
PROC: XW033E5 Introduction of Remdesivir Anti-infective into Peripheral Vein, Percutaneous Approach, New Technology Group 5 (ICD-10-PCS; principal; 2020-07-17)
PROC: 8E0ZXY6 Isolation (ICD-10-PCS; 2020-07-17)
DX: U07.1 COVID-19 (principal); J96.01 Acute respiratory failure with hypoxia; J12.82 Pneumonia due to coronavirus disease 2019; B38.9 Coccidioidomycosis, unspecified; B49 Unspecified mycosis; E66.9 Obesity, unspecified; G47.33 Obstructive sleep apnea (adult) (pediatric); R91.8 Other nonspecific abnormal finding of lung field; Z99.89 Dependence on other enabling machines and devices; Z87.891 Personal history of nicotine dependence; Z79.899 Other long term (current) drug therapy
CPT/HCPCS: 0240U; 36415; 71045; 71045-26; 71275; 71275-26; 80053; 81003; 82550; 83605; 83735; 84443; 84484; 85025; 85379; 85610; 87040; 87070; 87205; 87389; 93005; 94667; 99284; 99285-25; A9270-GY; J1650; J1956; J7042; J7050; J7120; J8540; Q9967